=== PATIENT | female | born 2000 | race Caucasian/White ===

== ENCOUNTER 2019-10-23 09:36 | Emergency (ER) | payer BC, SELFPAY ==
[2019-10-23 09:56] VITALS: BP 142/87; PULSE 78; RESP 16; TEMP 36.7; O2SAT 100
--- NOTE | 2019-10-23 10:04 | ED.GENADULT ---
HPI - General Adult General Chief complaint: Unspecified Stated complaint: Head Pain Time Seen by Provider: 10/23/19 10:14 Source: patient Mode of arrival: ambulatory Limitations: no limitations History of Present Illness HPI narrative: 19-year-old female patient presents to the [facility] with complaints of a left-sided headache for the past 3 days. Patient states that she was on the playground about 3 days ago playing with her nephew and states that when she turned her head she excellently hit her head on 1 of the metal beams on the playground. Patient denies any loss of consciousness at that time. Patient states she has been treating the headache with Tylenol and ibuprofen and ice. Patient states that she knows that the ice does help the best. Patient states she has had a little bit of nausea and some sensitivity to light at times denies taking any medication today for the pain. Denies any passing out, changes in personality. Denies any vomiting. Denies any neck pain. Related Data Home Medications Medication Instructions Recorded Confirmed No Home Medications 10/23/19 10/23/19 Allergies Allergy/AdvReac Type Severity Reaction Status Date / Time No Known Allergies Allergy Mild Verified 02/23/19 00:33 Review of Systems Review of Systems: Narrative: CONSTITUTIONAL: Denies fever, chills, or sweats. EYES: Denies visual changes, redness, or discharge. ENT: Denies rhinorrhea, congestion, sore throat, or otalgia. CARDIOVASCULAR: Denies chest pain, palpitations, or edema. RESPIRATORY: Denies cough or dyspnea. GASTROINTESTINAL: Denies abdominal pain, nausea, vomiting, or diarrhea. GENITOURINARY: Denies dysuria or hematuria. SKIN: Denies rash or itching. MUSCULOSKELETAL: Denies back pain, joint pain, or myalgia. NEUROLOGIC: Positive left-sided headache, denies numbness, or weakness. PSYCHIATRIC: Denies anxiety or depression. [facility] Past Medical History Medical History Anxiety Depression Surgical History Surgical History Hx of appendectomy Family History Family History Mother Leukemia Other Diabetes mellitus Other Diabetes mellitus Social History Social History Smoking packs per day: 0 Smoking cigarettes per day: 0.0 Years smoked: 2 Smoking pack-years: 0.00 Smoking status: Light tobacco smoker Tobacco type: cigarettes Second hand tobacco smoke exposure: Yes Alcohol intake: never Gender identity (if verbalized by the patient): Female Comments At the time of my signature I agree with nursing past medical history, surgical, social, and family history. There is no relevant family history pertinent to the presenting complaint. Exam Narrative: Exam Narrative: GENERAL: Well-appearing, well-nourished, and in no acute distress. HEAD: Normocephalic, atraumatic. No trigger point for headache. No palpable scalp tenderness or obvious deformity noted. No surface trauma noted. EYES: PERRLA and EOMI. ENT: Nares clear, no rhinorrhea or epistaxis. Mucous membranes moist. Bilateral TMs are clear no erythema or foreign bodies to the canal. Posterior pharynx no erythema, tonsillar joint, exudates or lesions present. NECK: Supple, no lymphadenopathy. No surface trauma, no soft tissue or muscle tenderness or spasm noted. Trachea midline. No subq emphysema or crepitus. No santiago tenderness, step-offs or deformity to firm Palpation at posterior midline. FROM without limitation or pain, normal flexion, extension,Lateral bending, rotation, and axial load. CHEST: Clear to auscultation. No respiratory distress. HEART: Regular rate and rhythm. No murmur heard. Normal peripheral pulses. ABDOMEN: Soft, nontender, nondistended, normal active bowel sounds. EXTREMITIES: Normal range of motion. No edema. SKIN:
== END 2019-10-23 10:21 | disposition home or self-care (01) ==
PROVIDERS: Emergency Provider Nurse Practitioner Family
DX: G44.319 Acute post-traumatic headache, not intractable (principal); F17.210 Nicotine dependence, cigarettes, uncomplicated
CPT/HCPCS: 99212; G0463

== ENCOUNTER 2020-01-10 19:05 | Emergency (ER) | payer BC, SELFPAY ==
--- NOTE | 2020-01-10 19:11 | ED.GENADULT ---
HPI - General Adult General Chief complaint: Extremity Injury, Upper Stated complaint: left arm injury Time Seen by Provider: 01/10/20 19:10 Source: patient Mode of arrival: ambulatory Limitations: no limitations History of Present Illness HPI narrative: 19-year-old female patient presents to the [facility] with complaints of left upper arm pain that started after she got off work today approximately 2:00 this afternoon. Patient states that she works at [employer] and does do a lot of lifting at times. Patient states that she does did not have an injury today that she is aware of. Patient states that mostly has pain around the clavicle area and at times does hurt move the left shoulder and arm. Denies take anything for the pain. Related Data Allergies Allergy/AdvReac Type Severity Reaction Status Date / Time No Known Allergies Allergy Mild Verified 01/10/20 19:18 Review of Systems Review of Systems: Narrative: CONSTITUTIONAL: Denies fever, chills, or sweats. EYES: Denies visual changes, redness, or discharge. ENT: Denies rhinorrhea, congestion, sore throat, or otalgia. CARDIOVASCULAR: Denies chest pain, palpitations, or edema. RESPIRATORY: Denies cough or dyspnea. GASTROINTESTINAL: Denies abdominal pain, nausea, vomiting, or diarrhea. GENITOURINARY: Denies dysuria or hematuria. SKIN: Denies rash or itching. MUSCULOSKELETAL: Denies back pain, joint pain, or myalgia. Positive left clavicle and left shoulder pain since this afternoon. NEUROLOGIC: Denies headache, numbness, or weakness. PSYCHIATRIC: Denies anxiety or depression. [facility] Past Medical History Medical History (Updated 01/10/20 @ 19:25 by LAUREL Rudolph) Anxiety Depression Surgical History Surgical History Hx of appendectomy Family History Family History Mother Leukemia Other Diabetes mellitus Other Diabetes mellitus Social History Social History Smoking packs per day: 0 Smoking cigarettes per day: 0.0 Years smoked: 2 Smoking pack-years: 0.00 Smoking status: Light tobacco smoker Tobacco type: cigarettes Second hand tobacco smoke exposure: Yes Alcohol intake: never Gender identity (if verbalized by the patient): Female Comments At the time of my signature I agree with nursing past medical history, surgical, social, and family history. There is no relevant family history pertinent to the presenting complaint. Exam Narrative: Exam Narrative: GENERAL: Well-appearing, well-nourished, and in no acute distress. HEAD: Normocephalic, atraumatic. EYES: PERRLA and EOMI. ENT: Nares clear, no rhinorrhea or epistaxis. Mucous membranes moist. NECK: Supple. No lymphadenopathy CHEST: Clear to auscultation. No respiratory distress. HEART: Regular rate and rhythm. No murmur heard. Normal peripheral pulses. ABDOMEN: Soft, nontender, nondistended, normal active bowel sounds. EXTREMITIES: The L shoulder is without obvious asymmetry or deformity when compared to the R shoulder. No surface trauma, ecchymosis, crepitus. No bony deformity or prominence of the humeral head No erythema, warmth, swelling. no tenderness to palpation to clavicle, A to C joint, acromion, scapula or humeral head. No tenderness to palpation of the bicipital groove or soft tissues. tenderness to palpation of the muscles of the left clavicle area, no tenderness to the muscles around the sterncleidomastoid, pectorals, biceps/triceps, deltoid, trapezius, rhomboid, latissimus dorsi, rotator cuff. No pain or limitation with active or passive abduction/adduction, internal/external rotation, flexion/extension. Negative empty can and drop arm test (rotator cuff). No axillary tenderness or lymphadenopathy. Normal sensation over the deltoid and ability to flex arm at elbow indicates intact axillary nerve function. Distal
[2020-01-10 19:16] VITALS: BP 129/86; PULSE 110; RESP 20; TEMP 36.8; O2SAT 100
== END 2020-01-10 19:31 | disposition home or self-care (01) ==
PROVIDERS: Emergency Provider Nurse Practitioner Family
DX: S46.912A Strain of unspecified muscle, fascia and tendon at shoulder and upper arm level, left arm, initial encounter (principal); X58.XXXA Exposure to other specified factors, initial encounter; F17.210 Nicotine dependence, cigarettes, uncomplicated
CPT/HCPCS: 99213; G0463

== ENCOUNTER 2020-05-10 22:43 | Emergency (ER) | payer BC, SELFPAY ==
--- NOTE | ~2020-05-10 | XR_ITS ---
EXAMINATION: XR hand RT 2V EXAM DATE: 05/10/2020 23:16 INDICATION: Pain in thumb, felt a pop while carrying boxes today . TECHNIQUE: Frontal and lateral projections of the right hand. There is no prior study for compariso n. FINDINGS: The thumb is flexed at the interphalangeal joint. There are no acute fractures or dislocati ons identified. There is no subcutaneous gas. There are no radiopaque foreign bodies. IMPRESSION: Flexed thumb, could be positional. No dorsal plate avulsion fracture identified. Please c linically correlate to exclude extensor ligamentous injury. Reviewed, dictated and finalized at location A. ERS COUNSELLOR IMPRESSION: Flexed thumb, could be positional. No dorsal plate avulsion fractur e identified. Please clinically correlate to exclude extensor ligamentous injur y.
[2020-05-10 22:44] VITALS: BP 153/84; PULSE 110; RESP 20; TEMP 36.2; O2SAT 99
--- NOTE | 2020-05-10 23:00 | ED.UPPEXIN ---
HPI - Extremity Injury (Upper) General Chief Complaint: Extremity Injury, Upper Stated Complaint: pain to right thumb Time Seen by Provider: 05/10/20 22:49 Source: patient Mode of arrival: ambulatory Limitations: no limitations History of Present Illness HPI narrative: Patient is a 19-year-old female complaining of right thumb pain after she fell, broke the fall with her right hand and heard something pop in her right thumb. Patient denies any other pain or injury. Patient denies any head, neck, back, chest or any other extremity pain/injury. Related Data Home Medications Medication Instructions Recorded Confirmed No Home Medications 05/10/20 05/10/20 Allergies Allergy/AdvReac Type Severity Reaction Status Date / Time No Known Allergies Allergy Mild Verified 05/10/20 22:47 Review of Systems Review of Systems: All systems reviewed & are unremarkable except as noted in HPI and below PMFSH Past Medical History Medical History (Updated 05/10/20 @ 23:04 by Alberto Downs MD) Anxiety Depression Surgical History Surgical History Hx of appendectomy Family History Family History Mother Leukemia Other Diabetes mellitus Other Diabetes mellitus Social History Social History Smoking packs per day: 0 Smoking cigarettes per day: 0.0 Years smoked: 2 Smoking pack-years: 0.00 Smoking status: Light tobacco smoker Tobacco type: cigarettes Second hand tobacco smoke exposure: Yes Alcohol intake: never Gender identity (if verbalized by the patient): Female Exam Const: General: no acute distress and alert Nutritional Appearance: obese Orientation/consciousness: patient oriented x3 HENMT: Head: normal to inspection Eyes: Conjunctivae: conjunctivae normal Neck: Neck: normal visual inspection Resp: Effort & Inspection: normal respiratory effort Skin: General skin exam: normal color Rashes: no rashes Neuro: General: moves all extremities Extrem: Other: Negative for any significant deformity or swelling. Pain on palpation of the right thumb, pain on range of motion of the right thumb, neurovascular is intact Course Vital Signs Vital signs: Vital Signs Temperature 36.2 C L 05/10/20 22:44 Pulse Rate 110 H 05/10/20 22:44 Respiratory Rate 20 05/10/20 22:44 Blood Pressure 153/84 H 05/10/20 22:44 Pulse Oximetry 99 05/10/20 22:44 Temperature 36.2 C L 05/10/20 22:44 Pulse Rate 110 H 05/10/20 22:44 Respiratory Rate 20 05/10/20 22:44 Blood Pressure 153/84 H 05/10/20 22:44 Pulse Oximetry 99 05/10/20 22:44 Discharge Plan Discharge Clinical Impression: Finger sprain Qualifiers: Encounter type: initial encounter Finger: thumb Sprain of finger site: unspecified site Laterality: right Qualified Code(s): S63.601A - Unspecified sprain of right thumb, initial encounter Patient Disposition: Home, Self-Care Condition: Improved Instructions: Finger Sprain (ED) Additional Instructions: Follow-up with your primary care physician in 1 to 2 days. Prescriptions: No Action No Home Medications RF: 0 Follow-up/Referrals: PHYSICIAN,LPN PER DIEM [Primary Care Provider] -
[2020-05-10] MEDS: IBUPROFEN 600 MG TABLET PO (23:35)
[2020-05-10 23:40] VITALS: BP 134/71; PULSE 99; RESP 18; O2SAT 99
== END 2020-05-10 23:40 | disposition home or self-care (01) ==
PROVIDERS: Emergency Provider Emergency Medicine
DX: S63.601A Unspecified sprain of right thumb, initial encounter (principal); F17.210 Nicotine dependence, cigarettes, uncomplicated; W19.XXXA Unspecified fall, initial encounter
CPT/HCPCS: 73120; 99283; A9270

== ENCOUNTER 2020-06-21 12:16 | Emergency (ER) | payer OTHER, BC, SELFPAY ==
--- NOTE | ~2020-06-21 | XR_ITS ---
EXAMINATION: XR shoulder RT min 2V DATE: 06/21/2020 12:58 INDICATION: Right shoulder pain post injury TECHNIQUE: AP internally and externally rotated, AP oblique externally rotated and transscapular Y vi ews of the right shoulder were obtained. COMPARISON: None FINDINGS: Normal alignment. No fracture. Glenohumeral joint is normal. Acromioclavicular joint is normal. Soft tissues are unremarkable. Visualized portion of the right lung are clear. IMPRESSION: Negative right shoulder radiographs. Reviewed, dictated and finalized at location A.
[2020-06-21 12:18] VITALS: BP 121/85; PULSE 84; RESP 18; TEMP 36.4; O2SAT 99
--- NOTE | 2020-06-21 13:18 | ED.GENADULT ---
HPI - General Adult General Chief complaint: Extremity Injury, Upper Stated complaint: RIGHT SHOULDER PAIN Time Seen by Provider: 06/21/20 12:20 Source: patient Mode of arrival: ambulatory Limitations: no limitations History of Present Illness HPI narrative: Patient is a 20-year-old female who presents to emergency department for evaluation of right shoulder pain after lifting boxes at work yesterday notes aching pain patient did take some ibuprofen with minimal improvement patient on arrival is in no distress pain is localized to the rotator cuff musculature patient denies similar occurrence in the past and has not been seen for this complaint Related Data Allergies Allergy/AdvReac Type Severity Reaction Status Date / Time No Known Allergies Allergy Mild Verified 06/21/20 12:20 Review of Systems Review of Systems: All systems reviewed & are unremarkable except as noted in HPI and below PMFSH Past Medical History Medical History (Updated 06/21/20 @ 13:21 by Michael Hillman PA-C) Anxiety Depression Surgical History Surgical History Hx of appendectomy Family History Family History Mother Leukemia Other Diabetes mellitus Other Diabetes mellitus Social History Social History Smoking packs per day: 0 Smoking cigarettes per day: 0.0 Years smoked: 2 Smoking pack-years: 0.00 Smoking status: Light tobacco smoker Tobacco type: cigarettes Second hand tobacco smoke exposure: Yes Alcohol intake: never Gender identity (if verbalized by the patient): Female Exam Narrative: Exam Narrative: GENERAL: Well-appearing, obese, and in no acute distress. HEAD: Normocephalic, atraumatic. EYES: PERRLA and EOMI. ENT: Nares clear, no rhinorrhea or epistaxis. Mucous membranes moist. CHEST: Clear to auscultation. No respiratory distress. No wheezes rales or rhonchi HEART: Regular rate and rhythm. No murmur heard. EXTREMITIES: Normal range of motion. No edema. Tenderness of the right rotator cuff musculature no deformities noted SKIN: Warm, dry, no rash. NEURO: No focal deficits. Alert and oriented x3. Neurovascularly intact PSYCH: Normal mood and affect. Course Course Emergency Course: Patient with likely shoulder strain will be managed accordingly given reasons for follow-up will be discharged home with planned outpatient follow-up Vital Signs Vital signs: Vital Signs Temperature 97.5 F L 06/21/20 12:18 Pulse Rate 84 06/21/20 12:18 Respiratory Rate 18 06/21/20 12:18 Blood Pressure 121/85 06/21/20 12:18 Pulse Oximetry 99 06/21/20 12:18 Temperature 97.5 F L 06/21/20 12:18 Pulse Rate 84 06/21/20 12:18 Respiratory Rate 18 06/21/20 12:18 Blood Pressure 121/85 06/21/20 12:18 Pulse Oximetry 99 06/21/20 12:18 Medical Decision Making MDM Narrative Medical decision making narrative: Patients injury or pain is consistent with musculoskeletal etiology. No signs of neurological or vascular compromise on exam. Compartments and tisues are soft without signs of compartment syndrome. Pain is felt appropriate for further evaluation on an outpatient basis. Vital Signs Vital Signs: Vital Signs Temperature 97.5 F L 06/21/20 12:18 Pulse Rate 84 06/21/20 12:18 Respiratory Rate 18 06/21/20 12:18 Blood Pressure 121/85 06/21/20 12:18 Pulse Oximetry 99 06/21/20 12:18 Temperature 97.5 F L 06/21/20 12:18 Pulse Rate 84 06/21/20 12:18 Respiratory Rate 18 06/21/20 12:18 Blood Pressure 121/85 06/21/20 12:18 Pulse Oximetry 99 06/21/20 12:18 Imaging Data Radiologist's impression: ITS Impressions Shoulder X-Ray 06/21/20 13:16 IMPRESSION: Negative right shoulder radiographs. Discharge Plan Discharge Clinical Impression: Acute pain of right shoulder Patient
== END 2020-06-21 13:31 | disposition home or self-care (01) ==
PROVIDERS: Emergency Provider Emergency Medicine
DX: M25.511 Pain in right shoulder (principal); F17.210 Nicotine dependence, cigarettes, uncomplicated
CPT/HCPCS: 73030; 99283

== ENCOUNTER 2020-06-28 15:18 | Emergency (ER) | payer OTHER, BC, SELFPAY ==
[2020-06-28 15:26] VITALS: BP 135/82; PULSE 105; RESP 14; TEMP 36.5; O2SAT 100
--- NOTE | 2020-06-28 15:37 | ED.GENADULT ---
HPI - General Adult General Chief complaint: Extremity Injury, Upper Stated complaint: right shoulder pain Time Seen by Provider: 06/28/20 15:21 Source: patient Mode of arrival: ambulatory Limitations: no limitations History of Present Illness HPI narrative: Patient presents for evaluation of right shoulder pain for the last week. She was evaluated here 6 days ago after she sustained a work-related injury the day prior. She states she works for [employer] and injured her shoulder lifting and pushing boxes. She did an x-ray at that time that was negative for fracture. She has been taking ibuprofen and Flexeril without much improvement in her symptoms. She has not followed up with occupational health as she did not know who she was to see for follow-up. It is constant, currently rated 4 out of 10 in severity, worse with movement. Pain radiates into the right lateral neck and down into the right humerus. She is right-hand dominant. Denies paresthesias. No additional complaints or concerns. No new traumatic injury to the affected area. Related Data Allergies Allergy/AdvReac Type Severity Reaction Status Date / Time No Known Allergies Allergy Mild Verified 06/21/20 12:20 Review of Systems Review of Systems: Narrative: CONSTITUTIONAL: Denies fever, chills, or sweats. EYES: Denies visual changes, redness, or discharge. ENT: Denies rhinorrhea, congestion, sore throat, or otalgia. CARDIOVASCULAR: Denies chest pain, palpitations, or edema. RESPIRATORY: Denies cough or dyspnea. GASTROINTESTINAL: Denies abdominal pain, nausea, vomiting, or diarrhea. GENITOURINARY: Denies dysuria or hematuria. SKIN: Denies rash or itching. MUSCULOSKELETAL: Reports pain in the right shoulder with radiation into the neck and right humerus NEUROLOGIC: Denies headache, numbness, dizziness, or weakness. PSYCHIATRIC: Denies anxiety or depression. [facility] Past Medical History Medical History (Updated 06/28/20 @ 15:43 by Michael Neff, LAUREL, WILLIS) Anxiety Depression Surgical History Surgical History Hx of appendectomy Family History Family History Mother Leukemia Other Diabetes mellitus Other Diabetes mellitus Social History Social History (Reviewed 06/28/20 @ 15:39 by Michael Neff, [facility], ) Smoking packs per day: 0 Smoking cigarettes per day: 0.0 Years smoked: 2 Smoking pack-years: 0.00 Smoking status: Light tobacco smoker Tobacco type: cigarettes Second hand tobacco smoke exposure: Yes Alcohol intake: never Gender identity (if verbalized by the patient): Female Exam Narrative: Exam Narrative: GENERAL: Well-appearing, well-nourished, and in no acute distress. HEAD: Normocephalic, atraumatic. EYES: PERRLA and EOMI. ENT: Nares clear, no rhinorrhea or epistaxis. Mucous membranes moist. Oropharynx without tonsillar hypertrophy exudate or other lesions. Bilateral TMs pearly miller nonbulging NECK: Supple. No adenopathy or masses. No carotid bruits or JVD CHEST: Clear to auscultation. No respiratory distress. No wheezes rales or rhonchi HEART: Regular rate and rhythm. No murmur heard. Normal peripheral pulses. ABDOMEN: Soft, nontender, nondistended, normal active bowel sounds. EXTREMITIES: Normal range of motion. No edema. SKIN: Warm, dry, no rash. NEURO: No focal deficits. Alert and oriented x3. PSYCH: Normal mood and affect. Course Course Emergency Course: This is a 20-year-old female who presented with right shoulder pain after injuring herself at work 1 week ago. She already had an x-ray 6 days ago that was negative for fracture. She did not follow-up with occupational health. She has no new traumatic injury warranting repeat x-ray. Ibuprofen and Flexeril have been minimally effective. Likely needs MRI. She was given hydrocodone here in the emergency department was advised to follow-up for fu
[2020-06-28] MEDS: HYDROcodone/acetaminophen (*CRX) 5-325 MG TABLET 1 TAB PO (15:46)
== END 2020-06-28 16:18 | disposition home or self-care (01) ==
LOC: ANHED 16:04
PROVIDERS: Emergency Provider Nurse Practitioner
DX: S46.911A Strain of unspecified muscle, fascia and tendon at shoulder and upper arm level, right arm, initial encounter (principal); F17.210 Nicotine dependence, cigarettes, uncomplicated; X50.0XXA Overexertion from strenuous movement or load, initial encounter
CPT/HCPCS: 99283; A9270

== ENCOUNTER 2021-09-17 14:36 | Emergency (ER) | payer OTHER, SELFPAY ==
--- NOTE | ~2021-09-17 | CT_ITS ---
EXAMINATION: CT abdomen pelvis w con DATE: 09/17/2021 17:51 INDICATION: Right flank pain and hematuria TECHNIQUE: Computed tomography (CT) of the abdomen and pelvis was performed with 100 cc Omnipaque 300 intravenous contrast. The dose-length product was 1333.12 mGy-cm. Automated exposure control and iterative reconstruction technique were employed. COMPARISON: CT dated 12/23/2018. FINDINGS: Lung bases are unremarkable. Heart size normal. No significant pleural or pericardial effus ion. No significant vascular abnormality. There is no significant lymphadenopathy. No Fatty infiltration of the liver. The spleen, pancreas, adrenal glands and kidneys are unremarkable. S tatus post appendectomy. Small fat-containing umbilical hernia. No abnormal pelvic masses or fluid co llections. No free air or free fluid. No acute osseous abnormality. IMPRESSION: 1. No acute abdominal abnormality. Reviewed, dictated and finalized at location A.
--- NOTE | ~2021-09-17 | US_ITS ---
US abdomen limited INDICATION: Abdomen pain PROCEDURE: Realtime right upper abdominal ultrasound. COMPARISON: No prior studies for comparison. FINDINGS: The pancreas is normal without focal mass or pancreatic ductal dilation. Liver echotexture is increased, consistent with fatty infiltration. There is normal directional flow in the portal ve in. The gallbladder is normal without stones, gallbladder wall thickening or pericholecystic fluid. Comm on bile duct measures 5 mm. No sonographic Bolden's sign. IMPRESSION: 1: Hepatic steatosis. Reviewed, dictated and finalized at location A. IMPRESSION: 1: Hepatic steatosis.
[2021-09-17 14:37] VITALS: BP 133/77; PULSE 82; RESP 16; TEMP 36.2; O2SAT 100
[2021-09-17 15:07] LABS: Appearance Urine Cloudy (Clear); Bilirubin Urine Negative (Negative); Blood Urine 3+ (Negative); Color Urine Yellow (Yellow); Glucose Urine UA 2+ mg/dL (Negative); Ketones Urine Negative (Negative); Leukocyte Esterase Ur Negative LEU/UL (Negative); Nitrate Urine Negative (Negative); Protein Urine 1+ mg/dL (Negative); Specific Grav Ur >= 1.030 (1.001-1.035); Urobilinogen Urine 0.2 mg/dL (<2.0)
[2021-09-17 15:07] LABS: Basophils Percent Auto 0.3 % (0.2-1.2); Eosinophils Absolute Auto 0.2 K/mm3 (0-0.3); Eosinophils Percent Auto 1.7 % (0-4.4); Hematocrit 43.3 % (37.0-47.0); Hemoglobin 13.6 g/dL (12.0-15.0); Immature Granulocyte Absolute 0.02 K/mm3 (0.00-0.031); Immature Granulocyte Percent A 0.2 % (0-0.5); Lymphocytes Absolute Auto 3.31 K/mm3 (0.9-3.2); Lymphocytes Percent Auto 38.2 % (18.3-44.2); Mean Corpuscular HGB Conc 31.4 g/dl (32-36); Mean Corpuscular Hemoglobin 25.6 pg (26-34); Mean Corpuscular Volume 81.4 fl (80-100); Mean Platelet Volume 11.7 fl (7.4-10.4); Monocytes Absolute Auto 0.4 K/mm3 (0.1-0.6); Monocytes Percent Auto 4.7 % (2.6-8.5); Neutrophils Absolute Auto 4.7 K/mm3 (1.3-6.7); Neutrophils Percent Auto 54.9 % (45.5-73.1); Platelet Count Result 272 k/mm3 (150-375); Red Blood Count 5.32 M/mm3 (4.2-5.4); Red Cell Distribution Width 13.4 % (11.5-14.5); White Blood Count 8.7 K/mm3 (4.5-10.0)
[2021-09-17 15:18] LABS: Alanine Aminotransferase 38 U/L (6-35); Albumin Level 4.3 g/dL (3.5-5.1); Alkaline Phosphatase 129 U/L (38-126); Anion Gap 8 mmol/L (8-16); Aspartate Amino Transferase 25 U/L (14-36); Bilirubin,Total 0.3 mg/dL (0.2-1.3); Blood Urea Nitrogen 18 mg/dL (7-17); Calcium 8.6 mg/dL (8.4-10.2); Carbon Dioxide 23 mmol/L (22-30); Chloride 108 mmol/L (98-107); Estimated CRCL calculation 152 ml/min; Estimated Glomerular Filt Rate > 60; Glucose 172 mg/dL (65-110); Potassium 4.1 mmol/L (3.4-5.0); Sodium 139 mmol/L (137-145)
[2021-09-17 15:33] LABS: Bacteria Urine Trace /hpf; Mucus Urine Rare /lpf; RBC Urine >75 /hpf (0-2); Squamous Epithelial Cell Urine Many /hpf (Few); WBC Urine 0-3 /hpf
[2021-09-17 15:44] LABS: Add Urine Microscopic? YES
--- NOTE | 2021-09-17 15:51 | ED.ABDPAIN ---
HPI - Abdominal Pain General Chief Complaint: Abdominal Pain Stated Complaint: Right Flank Pain Time Seen by Provider: 09/17/21 15:51 History of Present Illness HPI narrative: Patient is a 21-year-old female presenting to the emergency department for evaluation of right upper quadrant abdominal pain. Patient reports aching pain in her right upper quadrant with radiation to the middle of the upper abdomen. No associated fever, chills, nausea or vomiting. No associated flank pain, back pain or shoulder pain. She denies any chest pain, cough or dyspnea. Patient denies any lower abdominal pain. She does have history of appendectomy. She denies dysuria or hematuria. She denies lower pelvic pain. Patient has not taken any medication for the pain. She states that eating sometimes does mildly exacerbate the pain. She denies history of this in the past Related Data Home Medications Medication Instructions Recorded Confirmed citalopram 20 mg tablet tablet 09/17/21 Allergies Allergy/AdvReac Type Severity Reaction Status Date / Time No Known Allergies Allergy Mild Verified 06/21/20 12:20 Review of Systems Review of Systems: CONSTITUTIONAL: Denies fever, chills, or sweats. CARDIOVASCULAR: Denies chest pain, palpitations, or edema. RESPIRATORY: Denies cough or dyspnea. GASTROINTESTINAL: Reports abdominal pain, denies nausea, vomiting or diarrhea GENITOURINARY: Denies dysuria or hematuria. SKIN: Denies rash or itching. MUSCULOSKELETAL: Denies back pain, joint pain, or myalgia. NEUROLOGIC: Denies headache, numbness, or weakness. PSYCHIATRIC: Reports history of anxiety and depression [facility] Past Medical History Medical History (Updated 09/17/21 @ 18:10 by Katie Lake MD) Anxiety Depression Surgical History Surgical History Hx of appendectomy Family History Family History Mother Leukemia Other Diabetes mellitus Other Diabetes mellitus Social History Social History Smoking packs per day: 0 Smoking cigarettes per day: 0.0 Years smoked: 2 Smoking pack-years: 0.00 Smoking status: Light tobacco smoker Tobacco type: cigarettes Second hand tobacco smoke exposure: Yes Alcohol intake: never Gender identity (if verbalized by the patient): Female Exam Narrative: GENERAL: Awake, alert, conversant HEAD: Normocephalic, atraumatic. EYES: PERRLA and EOMI. ENT: Nares clear, no rhinorrhea or epistaxis. Mucous membranes moist. NECK: Supple. CHEST: No respiratory distress, breathing even and non labored HEART: Regular rate, sinus rhythm ABDOMEN:Non distended, right upper quadrant tenderness, positive epigastric tenderness, positive Bolden sign, no rebound, rigidity or guarding, no flank tenderness bilaterally EXTREMITIES: Normal range of motion. No edema. SKIN: Warm, dry, no rash. NEURO:No focal deficits. Alert and oriented x3 Course Vital Signs Vital signs: Vital Signs Temperature 36.2 C L 09/17/21 14:37 Pulse Rate 82 09/17/21 14:37 Respiratory Rate 16 09/17/21 14:37 Blood Pressure 133/77 09/17/21 14:37 Pulse Oximetry 100 09/17/21 14:37 Oxygen Delivery Room Air 09/17/21 14:37 Temperature 36.2 C L 09/17/21 14:37 Pulse Rate 82 09/17/21 14:37 Respiratory Rate 16 09/17/21 14:37 Blood Pressure 121/69 09/17/21 17:22 Pulse Oximetry 100 09/17/21 17:22 Oxygen Delivery Room Air 09/17/21 14:37 MDM - Abdominal Pain MDM Narrative Medical decision making narrative: Patient initially presenting for epigastric and right upper quadrant abdominal pain without chest pain or back pain. Differential includes cholecystitis, symptomatic cholelithiasis, pancreatitis, gastritis. Patient declines wanting any pain medication. Vital signs are stable. No peritoneal signs on exam of the abdomen. She is te
[2021-09-17 15:59] VITALS: BP 134/81; O2SAT 100
[2021-09-17 16:01] VITALS: BP 123/69; O2SAT 100
[2021-09-17 16:12] LABS: Pregnancy On Board Control Positive; Urine Pregnancy Test Negative
[2021-09-17 16:38] VITALS: BP 133/82; O2SAT 100
[2021-09-17 16:49] LABS: Lipase 65 U/L (23-300)
[2021-09-17] MEDS: SODIUM CHLORIDE 0.9% IV 1,000 ML 999 ML IV CONT (17:19)
[2021-09-17 17:22] VITALS: BP 121/69; O2SAT 100
[2021-09-17 18:25] VITALS: BP 121/72; PULSE 86; RESP 18; O2SAT 100
== END 2021-09-17 18:27 | disposition home or self-care (01) ==
PROVIDERS: General Practice; Emergency Provider Emergency Medicine
DX: K29.70 Gastritis, unspecified, without bleeding (principal); K76.0 Fatty (change of) liver, not elsewhere classified; F41.9 Anxiety disorder, unspecified; F32.A Depression, unspecified; F17.210 Nicotine dependence, cigarettes, uncomplicated
CPT/HCPCS: 36415; 74177; 76705; 80053; 81001; 81025; 83690; 85025; 96360; 99284; J7030; Q9967

== ENCOUNTER 2021-10-02 00:48 | Emergency (ER) | payer OTHER, SELFPAY ==
--- NOTE | ~2021-10-02 | CT_ITS ---
EXAMINATION: CT abdomen pelvis w con DATE: 10/02/2021 03:24 INDICATION: Right upper quadrant abdominal pain. Right flank pain. TECHNIQUE: Computed tomography (CT) of the abdomen and pelvis was performed with 100 mL Omnipaque-300 intravenous contrast. Automated exposure control and iterative reconstruction technique were employe d. The dose-length product was 1539.37 mGy-cm. COMPARISON: 09/17/2021 FINDINGS: Lung bases are clear. Heart size is normal. No pericardial or pleural effusion. Diffuse hepatic steat osis. Gallbladder, spleen, pancreas, bilateral adrenal glands and kidneys are normal. Appendix is not visualized. Postoperative changes at the tip the cecum consistent with prior appendectomy. Bowels ar e otherwise unremarkable. Bladder, anteverted uterus and bilateral adnexa are unremarkable. No free i ntraperitoneal gas or fluid. No pathologically enlarged abdominal or pelvic lymphadenopathy. Mild lum bar dextrocurvature. IMPRESSION: 1. No acute intra-abdominal/pelvic process. Reviewed, dictated and finalized at location A.
[2021-10-02 00:53] VITALS: BP 133/98; PULSE 96; RESP 20; TEMP 36.4; O2SAT 100
[2021-10-02] MEDS: MAG HYDROX/AL HYDROX/SIMETH 30 ML UDC PO (02:08)
--- NOTE | 2021-10-02 02:13 | ED.ABDPAIN ---
HPI - Abdominal Pain General Chief Complaint: Abdominal Pain <KARIME Hein Last Filed: 10/02/21 03:37> Stated Complaint: lower back pain, Hx of liver issues <KARIME Hein Last Filed: 10/02/21 03:37> Time Seen by Provider: 10/02/21 01:51 <KARIME Hein Last Filed: 10/02/21 03:37> History of Present Illness HPI narrative: Patient is a 21 year old female here for evaluation of right upper abdominal pain x 1 day. States the pain is constant in nature, is dull and achy, and remains in her right upper quadrant. She is additionally been experiencing some low back pain over the past day, that is worse with positions, bilateral but worse on the right side. Presents to the ED today largely because she was told she has a fatty liver in the past and was told to come back to the ED should she develop back pain. Denies fevers, chills, nausea, vomiting, diarrhea, constipation. <KARIME Hein Last Filed: 10/02/21 03:37> Related Data Home Medications: Home Medications Medication Instructions Recorded Confirmed citalopram 20 mg tablet tablet 09/17/21 <KARIME Hein Last Filed: 10/02/21 03:37> Allergies/Adverse Reactions: Allergies Allergy/AdvReac Type Severity Reaction Status Date / Time No Known Allergies Allergy Mild Verified 10/02/21 01:48 <KARIME Hein Last Filed: 10/02/21 03:37> Review of Systems Review of Systems: Gen.: Denies fevers or chills Eyes: Denies eye pain or visual change ENT: Denies congestion Respiratory: Denies shortness of breath or cough CV: Denies chest pain or palpitations GI: Reports upper abdominal pain. denies burning, urgency, frequency or hematuria Musculoskeletal: Reports back pain. Denies muscle pain Neuro: Denies numbness, tingling, weakness or focal weakness Skin: Denies rash Except as documented, all other systems reviewed and negative <KARIME Hein Last Filed: 10/02/21 03:37> [facility] Past Medical History Medical History: Medical History (Updated 10/02/21 @ 05:59 by Saumya Yang MD) Anxiety Depression <Cathy Hoffman PA-C - Last Filed: 10/02/21 03:37> Surgical History Surgical History: Surgical History Hx of appendectomy <Cathy Hoffman PA-C - Last Filed: 10/02/21 03:37> Family History Family History: Family History Mother Leukemia Other Diabetes mellitus Other Diabetes mellitus <Cathy Hoffman PA-C - Last Filed: 10/02/21 03:37> Social History Social History: Social History Smoking packs per day: 0 Smoking cigarettes per day: 0.0 Years smoked: 2 Smoking pack-years: 0.00 Smoking status: Light tobacco smoker Tobacco type: cigarettes Second hand tobacco smoke exposure: Yes Alcohol intake: never Gender identity (if verbalized by the patient): Female <KARIME Hein Last Filed: 10/02/21 03:37> Exam Narrative: APPEARANCE: Well appearing, no pain in distress, well-nourished. Head: Normocephalic and atraumatic. EYES: PERRLA/EOMI, conjunctivae clear NOSE: No nasal drainage EARS: External ear normal in appearance THROAT: Oropharynx is clear. Mucous membranes are moist. NECK: Supple. No adenopathy, no masses. RESPIRATORY: Airway patent, respirations nonlabored. Clear to auscultation bilaterally, no rales, rhonchi, wheezing. CARDIOVASCULAR: Regular rate and rhythm without murmurs, rubs, or gallops. ABDOMINAL: Tender to palpation in right upper quadrant. normoactive bowel sounds. Soft, nondistended. No rebound tenderness or guarding. MUSCULOSKELETAL: tender to palpation over lumbar paraspinal muscles. Extremities are warm and well-perfused. Moves all extremities well. No edema. NEURO: No
[2021-10-02 02:42] LABS: Basophils Absolute Auto 0.1 K/mm3 (0.0-0.1); Basophils Percent Auto 0.4 % (0.2-1.2); Eosinophils Absolute Auto 0.2 K/mm3 (0-0.3); Eosinophils Percent Auto 1.5 % (0-4.4); Hematocrit 39.9 % (37.0-47.0); Hemoglobin 12.6 g/dL (12.0-15.0); Immature Granulocyte Absolute 0.05 K/mm3 (0.00-0.031); Immature Granulocyte Percent A 0.4 % (0-0.5); Lymphocytes Absolute Auto 4.02 K/mm3 (0.9-3.2); Lymphocytes Percent Auto 35.3 % (18.3-44.2); Mean Corpuscular HGB Conc 31.6 g/dl (32-36); Mean Corpuscular Hemoglobin 25.4 pg (26-34); Mean Corpuscular Volume 80.4 fl (80-100); Mean Platelet Volume 11.6 fl (7.4-10.4); Monocytes Absolute Auto 0.6 K/mm3 (0.1-0.6); Monocytes Percent Auto 5.3 % (2.6-8.5); Neutrophils Absolute Auto 6.5 K/mm3 (1.3-6.7); Neutrophils Percent Auto 57.1 % (45.5-73.1); Platelet Count Result 270 k/mm3 (150-375); Red Blood Count 4.96 M/mm3 (4.2-5.4); Red Cell Distribution Width 13.4 % (11.5-14.5); White Blood Count 11.4 K/mm3 (4.5-10.0)
[2021-10-02 02:52] LABS: Alanine Aminotransferase 45 U/L (6-35); Albumin Level 4.1 g/dL (3.5-5.1); Alkaline Phosphatase 121 U/L (38-126); Anion Gap 9 mmol/L (8-16); Aspartate Amino Transferase 30 U/L (14-36); Bilirubin,Total 0.2 mg/dL (0.2-1.3); Blood Urea Nitrogen 23 mg/dL (7-17); Calcium 8.9 mg/dL (8.4-10.2); Carbon Dioxide 25 mmol/L (22-30); Chloride 105 mmol/L (98-107); Estimated CRCL calculation 135 ml/min; Estimated Glomerular Filt Rate > 60; Glucose 190 mg/dL (65-110); Lipase 72 U/L (23-300); Sodium 139 mmol/L (137-145)
[2021-10-02 03:35] LABS: Bacteria Urine Trace /hpf; Mucus Urine Rare /lpf; Squamous Epithelial Cell Urine Many /hpf (Few); WBC Urine 16-20 /hpf
[2021-10-02 03:44] LABS: Appearance Urine Slightly Cloudy (Clear); Bilirubin Urine Negative (Negative); Blood Urine Negative (Negative); Color Urine Yellow (Yellow); Glucose Urine UA Trace mg/dL (Negative); Ketones Urine Negative (Negative); Leukocyte Esterase Ur Trace LEU/UL (Negative); Nitrate Urine Negative (Negative); Protein Urine Negative (Negative); Specific Grav Ur >= 1.030 (1.001-1.035); Urobilinogen Urine 0.2 mg/dL (<2.0); pH Urine 6.5 (5.0-9.0)
[2021-10-02 03:45] LABS: Add Urine Microscopic? YES
[2021-10-02] MEDS: cefTRIAXone 2 GM in SODIUM CHLORIDE 0.9% IV 100 ML 200 ML IVPB (05:12)
[2021-10-02 06:12] VITALS: BP 125/72; PULSE 83; RESP 16; O2SAT 99
== END 2021-10-02 06:10 | disposition home or self-care (01) ==
PROVIDERS: Physician Assistant; Emergency Provider Emergency Medicine
DX: N39.0 Urinary tract infection, site not specified (principal); F41.9 Anxiety disorder, unspecified; F32.A Depression, unspecified; F17.210 Nicotine dependence, cigarettes, uncomplicated
CPT/HCPCS: 36415; 74177; 80053; 81001; 81025; 83690; 85025; 87086; 87088; 96365; 99284; A9270; J0696; Q9967

== ENCOUNTER 2022-04-22 23:23 | Emergency (ER) | payer OTHER, SELFPAY ==
--- NOTE | ~2022-04-22 | XR_ITS ---
EXAMINATION: XR shoulder LT min 2V DATE: 04/23/2022 05:14 INDICATION: Left shoulder pain. TECHNIQUE: 4 views of left shoulder were obtained. COMPARISON: None. FINDINGS: Bone alignment is normal. No fracture. Joint spaces are well maintained. IMPRESSION: 1. Normal left shoulder. Reviewed, dictated and finalized at location A. [facility] IMPRESSION: 1. Normal left shoulder.
[2022-04-22 23:29] VITALS: BP 144/80; PULSE 94; RESP 18; TEMP 35.8; O2SAT 99
[2022-04-23 03:24] VITALS: BP 135/92; PULSE 96; RESP 16; O2SAT 98
[2022-04-23] MEDS: IBUPROFEN 400 MG TABLET 800 MG PO (05:15)
[2022-04-23] MEDS: ACETAMINOPHEN 500 MG TABLET 1000 MG PO (05:15)
[2022-04-23] MEDS: methocarbamoL 750 MG TABLET PO (05:16)
--- NOTE | 2022-04-23 06:01 | ED.GENADULT ---
HPI - General Adult General Chief complaint: Extremity Injury, Upper Stated complaint: left arm pain after blood draw 10 days ago Time Seen by Provider: 04/23/22 04:18 History of Present Illness HPI narrative: 21-year-old presenting with left shoulder pain. The patient had a blood draw 10 days ago and has a small bruise on her bicep. She believes that has now spread to her shoulder. She has an achy pain in her shoulder that is worse with movement. 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 Patient has taken naproxen with some relief. She has not taken a dose and over 12 hours. She denies fever, chills, swelling of the joint, numbness tingling weakness to the extremity.Patient has had similar pain in her right shoulder that improved with naproxen. Related Data Home Medications Medication Instructions Recorded Confirmed citalopram 20 mg tablet tablet 09/17/21 Allergies Allergy/AdvReac Type Severity Reaction Status Date / Time No Known Allergies Allergy Mild Verified 04/22/22 23:32 [facility] Past Medical History Medical History (Updated 04/23/22 @ 06:10 by Bear Cheng MD) Anxiety Depression Surgical History Surgical History Hx of appendectomy Family History Family History Mother Leukemia Other Diabetes mellitus Other Diabetes mellitus Social History Social History Smoking packs per day: 0 Smoking cigarettes per day: 0.0 Years smoked: 2 Smoking pack-years: 0.00 Smoking status: Light tobacco smoker Tobacco type: cigarettes Second hand tobacco smoke exposure: Yes Alcohol intake: never Occupation/Education: other Gender identity (if verbalized by the patient): Female Exam Narrative: APPEARANCE: No apparent distress. Head: atraumatic. EYES: EOMI, NOSE: Atraumatic NECK: Trachea midline RESPIRATORY: No increased rate of breathing CARDIOVASCULAR: RRR, ABDOMINAL: Non-distended MUSCULOSKELETAl: No obvious deformities, no warmth to the joint, pain on active and passive range of motion she tries to touch her opposing shoulder or place her arm behind her back and extend, motor function intact. Sensation light touch intact in the hand. Cap refill less than 2 seconds. NEURO: Alert. Moving 4/4 extremities SKIN:: Small area of bruising over the left biceps PSYCHIATRIC: Normal affect Course Vital Signs Vital signs: Vital Signs Temperature 96.5 F L 04/22/22 23:29 Pulse Rate 94 04/22/22 23:29 Respiratory Rate 18 04/22/22 23:29 Blood Pressure 144/80 H 04/22/22 23:29 Pulse Oximetry 99 04/22/22 23:29 Temperature 96.5 F L 04/22/22 23:29 Pulse Rate 96 04/23/22 03:24 Respiratory Rate 16 04/23/22 03:24 Blood Pressure 135/92 H 04/23/22 03:24 Pulse Oximetry 98 04/23/22 03:24 Medical Decision Making MDM Narrative Medical decision making narrative: -Presentation: 21-year-old female presenting with left shoulder pain. Patient believes this is related to a blood draw she had 10 days ago but those are not related. -DDX includes but is not limited to: MSK pain, impingement syndrome, calcific tendinitis -Co-morbidities complicating care: anxiety -Social determinants of health: patient works as a oliver, she does significant overhead lifting. injury is impairing her ability to work. -External Chart Review: None -Hx from independent Sources: none -Discussion of Management/Consultants: none -Independent interpretation of studies: shoulder x-ray showed no acute findings. Dx tests considered but not ordered: None -Procedures: none -Interventions:800 mg Motrin, 1000 mg Tylenol, 15 mg Robaxin -Shared decision making / Disposition: patient's findings are consistent with shoulder impingement syndrome. She will be trialed on a short cour
[2022-04-23 07:36] VITALS: PULSE 85; RESP 16; O2SAT 99
== END 2022-04-23 07:37 | disposition home or self-care (01) ==
PROVIDERS: Emergency Provider Emergency Medicine
DX: M25.512 Pain in left shoulder (principal); F41.9 Anxiety disorder, unspecified; F32.A Depression, unspecified
CPT/HCPCS: 73030; 99283; A9270

== ENCOUNTER 2022-05-14 10:57 | Emergency (ER) | payer OTHER, SELFPAY ==
[2022-05-14 11:17] VITALS: BP 127/65; PULSE 104; RESP 16; TEMP 36.6; O2SAT 99
--- NOTE | 2022-05-14 11:27 | ED.URI ---
HPI - URI/Sore Throat General Chief Complaint: Upper Respiratory Infection Stated Complaint: Sore Throat Time Seen by Provider: 05/14/22 11:33 History of Present Illness HPI Narrative: 21-year-old female presented for complaint of sore throat for 4 days. Endorses associated ear pain. She denies sob, wheezing, difficulty maintaining secretions, headache, sinus congestion or drainage, nausea, vomiting, fevers or chills. Took [id number] cough and cold medication yesterday. Denies known sick contacts. Related Data Home Medications Medication Instructions Recorded Confirmed citalopram 20 mg tablet 1 tablet PO DAILY 09/17/21 05/14/22 famotidine 20 mg tablet 20 mg PO DAILY 05/14/22 05/14/22 metformin 500 mg tablet,extended 500 mg PO DAILY 05/14/22 05/14/22 release 24 hr Allergies Allergy/AdvReac Type Severity Reaction Status Date / Time No Known Allergies Allergy Mild Verified 05/14/22 11:07 Review of Systems Review of Systems: CONSTITUTIONAL: Denies body aches, fever, chills, or sweats. EYES: Denies visual changes, redness, or discharge. ENT: Denies rhinorrhea, congestion. CARDIOVASCULAR: Denies chest pain, palpitations, or edema. RESPIRATORY: Denies dyspnea. GASTROINTESTINAL: Denies abdominal pain, nausea, vomiting, or diarrhea. SKIN: Denies rash, itching, or wounds. MUSCULOSKELETAL: Denies back pain, joint pain, or myalgia. NEUROLOGIC: Denies headache PMFSH Past Medical History Medical History (Updated 05/14/22 @ 11:52 by Monserrat Hoyt APRN) Anxiety Depression Surgical History Surgical History Hx of appendectomy Family History Family History Mother Leukemia Other Diabetes mellitus Other Diabetes mellitus Social History Social History Smoking packs per day: 0 Smoking cigarettes per day: 0.0 Years smoked: 2 Smoking pack-years: 0.00 Smoking status: Light tobacco smoker Tobacco type: cigarettes Second hand tobacco smoke exposure: Yes Alcohol intake: never Occupation/Education: other Gender identity (if verbalized by the patient): Female Exam Narrative: GENERAL: Ill-appearing, no acute distress. EYES: conjunctivae clear ENT: Mucous membranes moist. TMs pearly miller with normal light reflex bilaterally; no tragal tenderness. Oropharynx erythematous without lesions. Tonsils enlarged 2+ without exudate. No drooling, no hoarseness, no trismus, uvula midline. No tripod positioning, hot potato voice, or soft palate swelling. NECK: Supple. No lymphadenopathy; tender CHEST: Clear to auscultation, breath sounds equal. No respiratory distress, speaks in full sentences. HEART: Regular rate and rhythm. No murmur heard. SKIN: Warm, dry, no rash. NEURO: Alert and oriented x3. Course Course Emergency Course: Patient is aware of diagnosis, understands and agrees to treatment plan. Anticipatory guidance given. Patient agrees to follow-up as directed and is aware of reasons to seek care at the emergency department. Portions of this record may have been created with voice recognition software Level of Care: Express Care Visit Vital Signs Vital signs: Vital Signs Temperature 97.9 F 05/14/22 11:17 Pulse Rate 104 H 05/14/22 11:17 Respiratory Rate 16 05/14/22 11:17 Blood Pressure 127/65 05/14/22 11:17 Pulse Oximetry 99 05/14/22 11:17 Oxygen Delivery Room Air 05/14/22 11:17 Temperature 97.9 F 05/14/22 11:17 Pulse Rate 104 H 05/14/22 11:17 Respiratory Rate 16 05/14/22 11:17 Blood Pressure 127/65 05/14/22 11:17 Pulse Oximetry 99 05/14/22 11:17 Oxygen Delivery Room Air 05/14/22 11:17 MDM - URI/Sore Throat MDM Narrative Medical decision making narrative: strep result reviewed with pt. Will treat based on PE. Advise supportive treatments. Patient is
== END 2022-05-14 11:54 | disposition home or self-care (01) ==
PROVIDERS: Emergency Provider Nurse Practitioner Family; PCP Nurse Practitioner Family
DX: J02.9 Acute pharyngitis, unspecified (principal); F17.210 Nicotine dependence, cigarettes, uncomplicated; Z79.84 Long term (current) use of oral hypoglycemic drugs
CPT/HCPCS: 87081; 87880; 99213; G0463

== ENCOUNTER 2022-09-27 14:12 | Emergency (ER) | payer OTHER, SELFPAY ==
[2022-09-27] VITALS (19 sets, daily range): BP systolic 120–140; BP diastolic 76–97; PULSE 80–109; RESP 18–32; TEMP 37.2; O2SAT 94–100
--- NOTE | ~2022-09-27 | XR_ITS ---
EXAMINATION: XR chest 2V 09/27/2022 14:34 INDICATION: Chest pain PROCEDURE: 2 view chest COMPARISON: No prior studies for comparison. FINDINGS: The lungs are clear. The cardiomediastinal silhouette is within normal limits. There are no pleural effusions. There is no pneumothorax suspected. IMPRESSION: 1: NO ACUTE CARDIOPULMONARY DISEASE. Reviewed, dictated and finalized at location A.
--- NOTE | 2022-09-27 14:19 | ECG_ITS ---
Measurements Intervals [place] Rate: 98 P: 37 [place]: 153 QRS: 112 QRSD: 86 T: 21 QT: 338 QTc: 432 Interpretive Statements SINUS RHYTHM RIGHT AXIS DEVIATION BORDERLINE R WAVE PROGRESSION, ANTERIOR LEADS MINIMAL Q WAVES- INFERIOR LEADS BORDERLINE T WAVE ABNORMALITY- ANTERIOR LEADS BASELINE WANDER- V2-V6 BORDERLINE ECG NO PREVIOUS ECG AVAILABLE FOR COMPARISON Electronically Signed On 09-27-2022 14:42:34 CDT by Adrian Flowers D.O.
[2022-09-27 14:37] LABS: Basophils Absolute Auto 0.1 K/mm3 (0.0-0.1); Basophils Percent Auto 0.6 % (0.2-1.2); Eosinophils Absolute Auto 0.2 K/mm3 (0-0.3); Hematocrit 45.3 % (37.0-47.0); Immature Granulocyte Absolute 0.03 K/mm3 (0.00-0.031); Immature Granulocyte Percent A 0.4 % (0-0.5); Lymphocytes Absolute Auto 3.32 K/mm3 (0.9-3.2); Lymphocytes Percent Auto 41.3 % (18.3-44.2); Mean Corpuscular HGB Conc 33.1 g/dl (32-36); Mean Corpuscular Hemoglobin 26.1 pg (26-34); Mean Corpuscular Volume 78.8 fl (80-100); Mean Platelet Volume 12.4 fl (7.4-10.4); Monocytes Absolute Auto 0.5 K/mm3 (0.1-0.6); Monocytes Percent Auto 5.8 % (2.6-8.5); Neutrophils Percent Auto 49.9 % (45.5-73.1); Platelet Count Result 270 k/mm3 (150-375); Red Blood Count 5.75 M/mm3 (4.2-5.4); Red Cell Distribution Width 12.8 % (11.5-14.5)
[2022-09-27 14:48] LABS: Alanine Aminotransferase 45 U/L (6-35); Albumin Level 4.8 g/dL (3.5-5.1); Alkaline Phosphatase 157 U/L (38-126); Anion Gap 12 mmol/L (8-16); Aspartate Amino Transferase 28 U/L (14-36); Bilirubin,Total 0.6 mg/dL (0.2-1.3); Blood Urea Nitrogen 16 mg/dL (7-17); Calcium 9.4 mg/dL (8.4-10.2); Carbon Dioxide 21 mmol/L (22-30); Chloride 102 mmol/L (98-107); Estimated CRCL calculation 151 ml/min; Estimated Glomerular Filt Rate > 60; Glucose 301 mg/dL (65-110); Lipase 81 U/L (23-300); Potassium 4.1 mmol/L (3.4-5.0); Sodium 135 mmol/L (137-145)
[2022-09-27 14:50] LABS: INR 0.9; Prothrombin Time 12.2 Seconds (11.1-14.7)
[2022-09-27 14:51] LABS: Partial Thromboplastin Time 23.9 SECONDS (22.3-36.8)
[2022-09-27] MEDS: ASPIRIN 81 MG CHEWABLE TABLET 324 MG PO (14:51)
[2022-09-27 15:00] LABS: Troponin I < 0.012 ng/mL (0.000-0.034)
--- NOTE | 2022-09-27 16:06 | ED.CHESTPAIN ---
HPI - Chest Pain General Chief Complaint: Chest Pain Stated Complaint: cp Time Seen by Provider: 09/27/22 15:32 History of Present Illness HPI narrative: 22-year-old female present to the emergency department for evaluation of left shoulder pain. Patient states she began having the pain yesterday and patient does describe left shoulder pain into her left chest. Patient states pain is worsened with deep inspiration. 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 Patient is PERC negative. Related Data Home Medications Medication Instructions Recorded Confirmed citalopram 20 mg tablet 1 tablet PO DAILY 09/17/21 05/14/22 famotidine 20 mg tablet 20 mg PO DAILY 05/14/22 05/14/22 metformin 500 mg tablet,extended 500 mg PO DAILY 05/14/22 05/14/22 release 24 hr Allergies Allergy/AdvReac Type Severity Reaction Status Date / Time No Known Allergies Allergy Mild Verified 05/14/22 11:07 Review of Systems Review of Systems: All systems reviewed & are unremarkable except as noted in HPI and below PMFSH Past Medical History Medical History (Updated 09/27/22 @ 17:43 by Poli Valadez MD) Anxiety Depression Surgical History Surgical History Hx of appendectomy Family History Family History Mother Leukemia Other Diabetes mellitus Other Diabetes mellitus Social History Social History Smoking packs per day: 0 Smoking cigarettes per day: 0.0 Years smoked: 2 Smoking pack-years: 0.00 Smoking status: Light tobacco smoker Tobacco type: cigarettes Second hand tobacco smoke exposure: Yes Alcohol intake: never Occupation/Education: other Gender identity (if verbalized by the patient): Female Exam Narrative: APPEARANCE: Well appearing, no pain, no distress, well-nourished. HEAD: normocephalic, atraumatic. EYES: PERRLA/EOMI, conjunctivae clear. NOSE: Normal no drainage EARS:TMS clear with good light reflex. THROAT: Pharynx clear, no exudate. NECK: Supple. No adenopathy, no masses. RESPIRATORY: Airway patent, respirations nonlabored. Clear to auscultation bilaterally, no rales, rhonchi, wheezing. CARDIOVASCULAR: Regular rate and rhythm without murmurs rubs or gallops. ABDOMINAL: Soft, nontender, nondistended, normal bowel sounds MUSCULOSKELETAL: Moves all extremities. Strength/ROM intact, No edema, No calf tenderness. Reproducible left chest wall tenderness to palpation with left deltoid tenderness to palpation NEURO: Alert. Cranial nerves II through XII intact. Good gait. Good coordination SKIN: Warm, dry. Normal Color PSYCHIATRIC: Normal affect/mood. Course Course Emergency Course: 22-year-old female present emerged department for evaluation of left shoulder pain left-sided pleuritic chest pain. Patient was PERC negative, low concern for pulm embolism. Patient was afebrile with no leukocytosis and a stable hemoglobin patient has a CMP within normal limits. Patient does have some hyperglycemia but patient is a known diabetic. Chest x-ray shows no acute cardiopulmonary abnormality. EKG shows normal sinus rhythm Patient had negative serial troponins. Patient's symptoms are consistent with pleurisy. Patient was encouraged to take ibuprofen for pain control. All question concerns were addressed and patient was stable at time of discharge from the ED. Vital Signs Vital signs: Vital Signs Temperature 99.0 F 09/27/22 14:28 Pulse Rate 99 09/27/22 14:28 Respiratory Rate 20 09/27/22 14:28 Blood Pressure 140/91 H 09/27/22 14:28 Pulse Oximetry 100 09/27/22 14:28 Oxygen Delivery Room Air 09/27/22 14:28 Temperature 99.0 F 09/27/22 14:28 Pulse Rate 98 09/27/22 17:57 Respiratory Rate 18 09/27/22 17:57 Blood Pressure 133/86 09/27/22 17:57 Pulse Oximetry 100
[2022-09-27] MEDS: KETOROLAC 15 MG/ML VIAL (*BKC) IV PUSH (16:29)
[2022-09-27 17:39] LABS: Troponin I < 0.012 ng/mL (0.000-0.034)
== END 2022-09-27 18:00 | disposition home or self-care (01) ==
PROVIDERS: Emergency Medicine; Emergency Provider Emergency Medicine; PCP Nurse Practitioner Family
DX: R07.89 Other chest pain (principal); F41.9 Anxiety disorder, unspecified; F32.A Depression, unspecified; F17.210 Nicotine dependence, cigarettes, uncomplicated; Z79.84 Long term (current) use of oral hypoglycemic drugs
CPT/HCPCS: 36415; 71046; 80053; 83690; 84484; 85025; 85610; 85730; 93005; 96374; 99284; A9270; J1885

== ENCOUNTER 2022-10-06 15:46 | Emergency (ER) | payer OTHER, SELFPAY ==
[2022-10-06 15:55] VITALS: BP 138/92; PULSE 104; RESP 16; TEMP 37.2; O2SAT 99
--- NOTE | 2022-10-06 16:09 | ED.DENTAL ---
HPI - Dental/Oral General Chief complaint: Dental/Oral Stated complaint: Jaw Pain History of Present Illness HPI Narrative: Pt is a 22 y/o female, presents to with left lower dental pain, onset 3 days ago. she has now developed a small area of swelling below the tooth that she can feel when she palpates the left mandible. She denies sublingual swelling, fevers or trauma. She does not have a dentist, prompting her visit. She is taking APAP and Motrin without much pain relief. She denies any other modifying factors. Related Data Home Medications Medication Instructions Recorded Confirmed citalopram 20 mg tablet 1 tablet PO DAILY 09/17/21 10/06/22 Allergies Allergy/AdvReac Type Severity Reaction Status Date / Time No Known Allergies Allergy Mild Verified 10/06/22 15:52 Review of Systems Constitutional: Comments: no fevers or chills ENT: Comments: refer to HPI Respiratory: Comments: no cough, SOB Gastrointestinal: Comments: no NVDC Integumentary/Breasts: Comments: no skin rashes PMFSH Past Medical History Medical History (Updated 10/06/22 @ 16:15 by LAUREL Lopez) Anxiety Depression Surgical History Surgical History Hx of appendectomy Family History Family History Mother Leukemia Other Diabetes mellitus Other Diabetes mellitus Social History Social History Smoking packs per day: 0 Smoking cigarettes per day: 0.0 Years smoked: 2 Smoking pack-years: 0.00 Smoking status: Light tobacco smoker Tobacco type: cigarettes Second hand tobacco smoke exposure: Yes Alcohol intake: never Occupation/Education: other Gender identity (if verbalized by the patient): Female Exam Const: General: healthy appearing and no acute distress Nutritional Appearance: obese centrally obese Orientation/consciousness: patient oriented x3 Limitations: no limitations HENMT: Head: normal to inspection Ears: external ears normal, TM's normal bilaterally and EAC's normal Face/Nose/Sinus: Normal external nose present and Normal nares present Face and sinus: normal facial exam Mouth: Yes Normal oral and palatal mucosa present Teeth and gingiva: abnormal tooth and associated gingiva lower left second molar tender and other (caries present, percussion tenderness, palpable swelling to the mandible parallel to the affected tooth. no sublingual swelling) Throat: posterior oropharynx normal Neck: Neck: normal visual inspection, no lymphadenopathy and no meningeal signs Resp: Effort & Inspection: normal respiratory effort Auscultation: clear to auscultation bilaterally Cardio: Rate: regular rate Rhythm: regular rhythm Other: HR 94 at PMI Skin: General skin exam: normal color Rashes: no rashes Neuro: General: patient oriented x3, moves all extremities, no meningeal signs, no focal motor deficits and CN's II-XI intact bilaterally Course Course Emergency Course: suspect small focal dental abscess. Plan to treat with Augmentin, Dental list will be provided, continued APAP and Motrin at home for dentalgia Level of Care: [facility] Care Visit ([id number]) Vital Signs Vital signs: Vital Signs Temperature 37.2 C 10/06/22 15:55 Pulse Rate 104 H 10/06/22 15:55 Respiratory Rate 16 10/06/22 15:55 Blood Pressure 138/92 H 10/06/22 15:55 Pulse Oximetry 99 10/06/22 15:55 Oxygen Delivery Room Air 10/06/22 15:55 Temperature 37.2 C 10/06/22 15:55 Pulse Rate 104 H 10/06/22 15:55 Respiratory Rate 16 10/06/22 15:55 Blood Pressure 138/92 H 10/06/22 15:55 Pulse Oximetry 99 10/06/22 15:55 Oxygen Delivery Room Air 10/06/22 15:55 MDM - Dental/Oral MDM Narrative Medical decision making narrative: will treat with oral abx for dental abscess, ER if sublingual
== END 2022-10-06 16:22 | disposition home or self-care (01) ==
PROVIDERS: Emergency Provider Nurse Practitioner Family; PCP Nurse Practitioner Family
DX: K04.7 Periapical abscess without sinus (principal); F17.210 Nicotine dependence, cigarettes, uncomplicated; F41.9 Anxiety disorder, unspecified; F32.A Depression, unspecified
CPT/HCPCS: 99213; G0463

== ENCOUNTER 2023-01-02 10:26 | Emergency (ER) | payer OTHER, SELFPAY ==
[2023-01-02 10:39] VITALS: BP 117/82; PULSE 93; RESP 16; TEMP 36.3; O2SAT 100
--- NOTE | 2023-01-02 10:54 | ED.EXTPRO ---
HPI - Extremity Problem General Chief complaint: Extremity Problem,Nontraumatic Stated complaint: right foot problem Time Seen by Provider: 01/02/23 10:42 Source: patient and RN notes reviewed Mode of arrival: ambulatory Limitations: no limitations History of Present Illness HPI Narrative: Patient presents today with a 2 week history of pain to her right foot. Denies injury or trauma. Denies numbness or tingling to the foot or toes. She has been taking Tylenol and ibuprofen at home without relief. History of diabetes and reports that blood sugars are well controlled with Ozempic. Related Data Home Medications Medication Instructions Recorded Confirmed citalopram 20 mg tablet 1 tablet PO DAILY 09/17/21 01/02/23 ergocalciferol (vitamin D2) 1,250 1,250 mcg PO DIRECTED 01/02/23 01/02/23 mcg (50,000 unit) capsule semaglutide 0.25 mg or 0.5 mg (2 0.25 mg subcut DIRECTED 01/02/23 01/02/23 mg/3 mL) subcutaneous pen injector (Ozempic) Allergies Allergy/AdvReac Type Severity Reaction Status Date / Time No Known Allergies Allergy Mild Verified 01/02/23 10:38 Review of Systems Review of Systems: CONSTITUTIONAL: Denies body aches, fever, chills, or sweats. EYES: Denies visual changes, redness, or discharge. ENT: Denies rhinorrhea, congestion, sore throat, or otalgia. CARDIOVASCULAR: Denies chest pain, palpitations, or edema. RESPIRATORY: Denies cough or dyspnea. GASTROINTESTINAL: Denies abdominal pain, nausea, vomiting, or diarrhea. GENITOURINARY: Denies dysuria or hematuria. SKIN: Denies rash, itching, or wounds. MUSCULOSKELETAL: Denies back pain, or myalgia. + right foot pain. NEUROLOGIC: Denies headache, numbness, tingling, or weakness. PSYCH: Denies depression or anxiety. [facility] Past Medical History Medical History (Updated 01/02/23 @ 11:05 by Mendy Dinero, [facility], ) Anxiety Depression Diabetes Surgical History Surgical History Hx of appendectomy Family History Family History Mother Leukemia Other Diabetes mellitus Other Diabetes mellitus Social History Social History Smoking packs per day: 0 Smoking cigarettes per day: 0.0 Years smoked: 2 Smoking pack-years: 0.00 Smoking status: Light tobacco smoker Tobacco type: cigarettes Second hand tobacco smoke exposure: Yes Alcohol intake: never Occupation/Education: other Gender identity (if verbalized by the patient): Female Comments At time of signature, I have reviewed and agree with nursing past medical, surgical, social and family history unless otherwise noted. Please see nursing chart for further information. There is no relevant family history pertinent to the presenting complaint Exam Narrative: GENERAL: Well-appearing, well-nourished, and in no acute distress. HEAD: Normocephalic, atraumatic. EYES: EOMI. No redness or drainage. Conjunctivae normal. ENT: Mucous membranes pink and moist. EXTREMITIES: Right foot; Tenderness to the dorsum of the foot and extends down to the toes. No ecchymosis or erythema noted. No edema. Distal sensation intact, capillary refill normal, pedal pulse normal. Full ROM of ankle and toes. SKIN: Warm, dry, no rash. Capillary refill normal. Normal skin turgor. NEURO: No focal deficits. Alert and oriented x3. Gait steady. PSYCH: Normal affect. No signs of depression or anxiety. Course Course Level of Care: Express Care Visit Vital Signs Vital signs: Vital Signs Temperature 97.4 F L 01/02/23 10:39 Pulse Rate 93 01/02/23 10:39 Respiratory Rate 16 01/02/23 10:39 Blood Pressure 117/82 01/02/23 10:39 Pulse Oximetry 100 01/02/23 10:39 Oxygen Delivery Room Air 01/02/23 10:39 Temperature 97.4 F L 01/02/23 10:39 Pulse Rate 93 01/02/23 10:39 Respiratory Rate 16 01/02/23 1
== END 2023-01-02 11:15 | disposition home or self-care (01) ==
PROVIDERS: Emergency Provider Nurse Practitioner; PCP Nurse Practitioner Family
DX: M79.671 Pain in right foot (principal); F41.9 Anxiety disorder, unspecified; F32.A Depression, unspecified; E11.9 Type 2 diabetes mellitus without complications; Z72.0 Tobacco use
CPT/HCPCS: 99213; G0463

== ENCOUNTER 2023-01-12 10:39 | Emergency (ER) | payer OTHER, SELFPAY ==
[2023-01-12 10:47] VITALS: BP 108/81; PULSE 90; RESP 16; TEMP 37; O2SAT 99
[2023-01-12 10:48] VITALS: BP 108/81; PULSE 90; RESP 16; TEMP 37; O2SAT 99
--- NOTE | 2023-01-12 10:55 | ED.EYEPROB ---
HPI - Eye Problem General Chief complaint: Eye Problems Stated complaint: both eyes red, irritated Time Seen by Provider: 01/12/23 10:48 Source: patient Mode of arrival: ambulatory Limitations: no limitations History of Present Illness HPI Narrative: 22-year-old female presented for complaint of bilateral eye redness and irritation over the past couple of days. She states this morning she woke with a right eye crusted shut. Endorses itching and burning with discharge, right is worse than the left. She denies known sick contacts but states her niece has been exposed to pinkeye. Denies headache, rhinorrhea, vision changes, Photophobia, dizziness, nausea, vomiting, fevers or chills. No treatment PATIENT ADVOCATE. Does not wear contact lenses. MD chief complaint: eye pain Related Data Home Medications Medication Instructions Recorded Confirmed citalopram 20 mg tablet 1 tablet PO DAILY 09/17/21 01/02/23 ergocalciferol (vitamin D2) 1,250 1,250 mcg PO DIRECTED 01/02/23 01/02/23 mcg (50,000 unit) capsule semaglutide 0.25 mg or 0.5 mg (2 0.25 mg subcut DIRECTED 01/02/23 01/02/23 mg/3 mL) subcutaneous pen injector (Ozempic) metformin 500 mg tablet 500 mg PO DAILY 01/12/23 01/12/23 Allergies Allergy/AdvReac Type Severity Reaction Status Date / Time No Known Allergies Allergy Mild Verified 01/12/23 10:47 Review of Systems Review of Systems: CONSTITUTIONAL: Denies body aches, fever, chills EYES:Endorses redness, pain, drainage; Denies swelling, visual changes, FB sensation, photophobia ENT: Denies rhinorrhea, congestion, sore throat, or otalgia. CARDIOVASCULAR: Denies chest pain, palpitations RESPIRATORY: Denies cough or dyspnea. GASTROINTESTINAL: Denies abdominal pain, nausea, vomiting, or diarrhea. SKIN: Denies rash, itching, or wounds. MUSCULOSKELETAL: Denies back pain, joint pain, or myalgia. NEUROLOGIC: Denies headache, numbness, tingling, or weakness. All systems reviewed & are unremarkable except as noted in HPI and below PMFSH Past Medical History Medical History (Updated 01/12/23 @ 11:00 by Monserrat Douglas APRN) Anxiety Depression Diabetes Surgical History Surgical History (Updated 01/12/23 @ 11:00 by Monserrat Douglas APRN) History of tonsillectomy Hx of appendectomy Family History Family History Mother Leukemia Other Diabetes mellitus Other Diabetes mellitus Social History Social History Smoking packs per day: 0 Smoking cigarettes per day: 0.0 Years smoked: 2 Smoking pack-years: 0.00 Smoking status: Light tobacco smoker Tobacco type: cigarettes Second hand tobacco smoke exposure: Yes Alcohol intake: never Occupation/Education: other Gender identity (if verbalized by the patient): Female Comments At time of signature, I have reviewed and agree with nursing past medical, surgical, social and family history unless otherwise noted. Please see nursing chart for further information. There is no relevant family history pertinent to the presenting complaint Exam Narrative: GENERAL: Well-appearing HEAD: Normocephalic, atraumatic. EYES: bilateral conjunctival injection, clear drainage; No eye lid swelling. PERRLA, EOMI. Lid eversion shows no FB. ENT: Mucous membranes pink and moist. No rhinorrhea. TMs normal bilaterally. Throat normal. Uvula midline. CHEST: Clear to auscultation. HEART: Regular rate and rhythm. ABDOMEN: Soft, nontender, nondistended SKIN: Warm, dry, no rash. Normal skin turgor. NEURO: No focal deficits. Alert and oriented x3 PSYCH: Normal affect. Course Course Emergency Course: Patient is aware of diagnosis, understands and agrees to treatment plan. Anticipatory guidance given. Patient agrees to follow-up as directed and is aware of reasons to seek care at the emergency department. Portions of this record may have
== END 2023-01-12 10:56 | disposition home or self-care (01) ==
PROVIDERS: Emergency Provider Nurse Practitioner Family; PCP Nurse Practitioner Family
DX: H10.9 Unspecified conjunctivitis (principal); E11.9 Type 2 diabetes mellitus without complications; F41.9 Anxiety disorder, unspecified; F32.A Depression, unspecified
CPT/HCPCS: 99213; G0463

== ENCOUNTER 2023-07-19 15:46 | Outpatient (CLI) | payer OTHER, SELFPAY ==
--- NOTE | ~2023-07-19 | XR_ITS ---
EXAMINATION: XR chest 2V Exam Date/Time: 07/19/2023 15:58 CDT HISTORY: CHEST PAIN Comparison: 09/27/2022. RESULT: Lines, tubes, and devices: None. Lungs and pleura: Clear. Cardiomediastinal silhouette: Stable. Other: No acute osseous or upper abdominal finding. IMPRESSION: No acute cardiopulmonary process. Reviewed, dictated and finalized at location K.
== END 2023-07-19 15:47 | disposition home or self-care (01) ==
LOC: ANHIMG 15:47
PROVIDERS: PCP Nurse Practitioner Family; Visit Provider Nurse Practitioner Adult Health
DX: R07.9 Chest pain, unspecified (principal)
CPT/HCPCS: 71046

== ENCOUNTER 2023-08-25 09:45 | Outpatient (CLI) | payer OTHER, SELFPAY ==
--- NOTE | 2023-08-26 10:16 | WPDPFTINT ---
PFT Procedure Performed PFT Procedure Performed Plethysmography (Lung Vol) Diffusing Cap (DLCO) Flow Vol Loop Spirometry w/o Bronchodil PFT Interpretation Lung volumes were assessed using the body plethysmography method and found to be within normal limits. Spirometry results indicated normal expiratory flow rates and a normal FEV1/FVC ratio of 81%. A post-bronchodilator study was not performed. If obstructive airway disease is suspected in this young female, repeat spirometry after bronchodilator administration may be warranted. Clinical correlation is recommended. Lung diffusion capacity is normal at 79% of the predicted value. The flow-volume loop is also unremarkable. Impression: Spirometry, lung volumes, and lung diffusion capacity all within the normal range.
== END 2023-08-25 09:46 | disposition home or self-care (01) ==
LOC: ANHPFT 09:46
PROVIDERS: PCP Nurse Practitioner Family; Visit Provider Nurse Practitioner Adult Health
DX: R06.00 Dyspnea, unspecified (principal)
CPT/HCPCS: 94375; 94726; 94729

== ENCOUNTER 2023-10-06 11:55 | Emergency (ER) | payer OTHER, SELFPAY ==
[2023-10-06 12:07] VITALS: BP 142/92; PULSE 78; RESP 15; TEMP 36.4; O2SAT 100
--- NOTE | 2023-10-06 12:09 | ED.EAR ---
HPI - Ear Problem General Chief complaint: Ear Stated complaint: left earache Source: patient, RN notes reviewed and old records reviewed Mode of arrival: ambulatory Limitations: no limitations History of Present Illness HPI Narrative: Patient presents today with complaints of left ear pain for 2 weeks. She denies any injury or trauma. She does report that she had some discharge at the onset. She reports she is diabetic, well controlled blood sugars typically 120. She denies any fever, chills, sweats. She voices no other concerns or complaints today. Related Data Home Medications Medication Instructions Recorded Confirmed empagliflozin 10 mg tablet 10 mg PO DAILY 10/06/23 10/06/23 (Jardiance) semaglutide 2 mg/dose (8 mg/3 mL) See Rx Instructions .Route .COMPLEX 10/06/23 10/06/23 subcutaneous pen injector (Ozempic) Allergies Allergy/AdvReac Type Severity Reaction Status Date / Time No Known Allergies Allergy Mild Verified 10/06/23 12:01 Review of Systems Review of Systems: All systems reviewed & are unremarkable except as noted in HPI and below Constitutional: Constitutional: Reports no additional constitutional complaints ENT: Reports system reviewed and no additional complaints, except as documented Cardiovascular: Cardiovascular: Reports no additional cardiovascular complaints Respiratory: Respiratory: Reports no additional respiratory complaints Gastrointestinal: Gastrointestinal: Reports no additional gastrointestinal complaints Endocrine: Endocrine: Reports as per HPI [facility] Past Medical History Medical History (Updated 10/06/23 @ 12:18 by Laurie Martinez APRN) Anxiety Depression Diabetes Surgical History Surgical History History of tonsillectomy Hx of appendectomy Family History Family History Mother Leukemia Other Diabetes mellitus Other Diabetes mellitus Social History Social History Smoking packs per day: 0 Smoking cigarettes per day: 0.0 Years smoked: 2 Smoking pack-years: 0.00 Smoking status: Light tobacco smoker Tobacco type: cigarettes Second hand tobacco smoke exposure: Yes Alcohol intake: never Occupation/Education: other Gender identity (if verbalized by the patient): Female Comments At the time of my signature, I reviewed and agree with the nursing past medical, surgical, social, and family history. There is no relevant family history pertinent to the patient complaint. Exam Const: General: cooperative, no acute distress, alert and awake Orientation/consciousness: oriented to person, oriented to place and oriented to time HENMT: Head: normal to inspection Ears: TM normal on the right, TM normal on the left and Abnormal EAC present erythema (left), edema (left) and EAC tenderness (left) Resp: Effort & Inspection: normal respiratory effort and able to speak in complete sentences Auscultation: clear to auscultation bilaterally, no crackles, no rales, no rhonchi and no wheezes Cardio: Palpation: normal PMI Rate: regular rate Rhythm: regular rhythm Heart sounds: S1 normal heart sound present and S2 normal heart sound present Neuro: General: oriented to person, oriented to place and oriented to time Cranial nerves: Yes CN's II-XII intact bilaterally Psych: Appearance: grossly normal Thought process: Normal thought process present Insight: Good insight present (Psych) Judgement: Good judgement present (Psych) Course Course Level of Care: Express Care Visit Vital Signs Vital signs: Vital Signs Temperature 97.5 F L 10/06/23 12:07 Pulse Rate 78 10/06/23 12:07 Respiratory Rate 15 10/06/23 12:07 Blood Pressure 142/92 H 10/06/23 12:07 Pulse Oximetry 100 10/06/23 12:07 Oxygen Delivery Room Air 10/06/23 12:07 Temperature 97.5 F L 10/06/23 12:0
== END 2023-10-06 12:23 | disposition home or self-care (01) ==
PROVIDERS: Emergency Provider Nurse Practitioner Family; PCP Nurse Practitioner Adult Health
DX: H60.332 Swimmer's ear, left ear (principal); F17.210 Nicotine dependence, cigarettes, uncomplicated; E11.9 Type 2 diabetes mellitus without complications; Z79.84 Long term (current) use of oral hypoglycemic drugs
CPT/HCPCS: 99213; G0463

== ENCOUNTER 2023-11-30 08:23 | Outpatient (CLI) | payer OTHER, SELFPAY ==
--- NOTE | 2023-11-30 | EST_ITS ---
Patient Info Name: Galina Amos Age: 23 years : 2000 Gender: Female Ht: 65 in Wt: 232 lbs BSA: 2.25 m2 HR: 80 bpm BP: 102 / 64 mmHg Exam Date: 11/30/2023 8:53 AM Exam Location: Echo Lab Patient Status: Outpatient Admit Date: 11/30/2023 Staff Ordering Physician: Andrey, Melida Young APRN Therapy Manager: Cecily Goodwin RDCS Attending Provider: ADRIAN DUKE Referring Physician: Andrey BRAVO; Exercise Technologist: Cecily Goodwin RDCS Exercise Physician: Adrian Duke DO Exam Type: CA stress echo Study Info Indications R07.9 - Chest pain, unspecified Treadmill exercise stress echocardiogram is performed. Summary 1. 1. Negative Gabriel exercise stress test for ischemic ST changes by ECG criteria. 2. 2. Reduced functional capacity, achieving 8.6 METs of workload. 3. 3. Appropriate HR response to exercise. 4. 4. Appropriate HR recovery at 1 minute post exercise. 5. 5. Negative stress echocardiogram for ischemia by wall motion analysis. 6. 6. Patient informed of the above results. Stress Echo Findings Left Ventricle Appropriate increase in LV endocardial thickening with systole. Appropriate augmentation of contractility with systole. No wall motion abnormality. Left Ventricle Normal LV systolic function, no wall motion abnormality. Protocol: Gabriel Stress ECG Details Stage: REST Duration (min): 1 min : 23 sec Speed (mph): 0.0 Grade (%): 0 HR (bpm): 77 SBP (mmHg): 102 DBP (mmHg): 64 METS: --- Stage: REST Duration (min): 7 min : 19 sec Speed (mph): 0.0 Grade (%): 0 HR (bpm): 77 SBP (mmHg): 102 DBP (mmHg): 64 METS: --- Stage: STAGE 1 Duration (min): 1 min : 0 sec Speed (mph): 1.7 Grade (%): 10 HR (bpm): 109 SBP (mmHg): 102 DBP (mmHg): 64 METS: --- Stage: STAGE 1 Duration (min): 2 min : 0 sec Speed (mph): 1.7 Grade (%): 10 HR (bpm): 117 SBP (mmHg): 102 DBP (mmHg): 64 METS: --- Stage: STAGE 1 Duration (min): 3 min : 0 sec Speed (mph): 1.7 Grade (%): 10 HR (bpm): 120 SBP (mmHg): 144 DBP (mmHg): 79 METS: --- Stage: STAGE 2 Duration (min): 1 min : 0 sec Speed (mph): 2.5 Grade (%): 12 HR (bpm): 132 SBP (mmHg): 144 DBP (mmHg): 79 METS: --- Stage: STAGE 2 Duration (min): 2 min : 0 sec Speed (mph): 2.5 Grade (%): 12 HR (bpm): 139 SBP (mmHg): 144 DBP (mmHg): 79 METS: --- Stage: STAGE 2 Duration (min): 3 min : 0 sec Speed (mph): 2.5 Grade (%): 12 HR (bpm): 145 SBP (mmHg): 235 DBP (mmHg): 88 METS: --- Stage: STAGE 3 Duration (min): 0 min : 55 sec Speed (mph): 0.0 Grade (%): 0 HR (bpm): 153 SBP (mmHg): 235 DBP (mmHg): 88 METS: --- Stage: RECOVERY Duration (min): 0 min : 4 sec Speed (mph): 0.0 Grade (%): 0 HR (bpm): 125 SBP (mmHg): 235 DBP (mmHg): 88 METS: --- Stage: RECOVERY Duration (min): 1 min : 4 sec Speed (mph): 0.0 Grade (%): 0 HR (bpm): 98 SBP (mmHg): 235 DBP (mmHg): 88 METS: ---
== END 2023-11-30 08:24 | disposition home or self-care (01) ==
LOC: ANHCARD 08:24
PROVIDERS: PCP Nurse Practitioner Adult Health; Visit Provider Nurse Practitioner Adult Health
DX: R07.9 Chest pain, unspecified (principal); R06.00 Dyspnea, unspecified; E66.01 Morbid (severe) obesity due to excess calories; Z68.35 Body mass index [BMI] 35.0-35.9, adult
CPT/HCPCS: 93351

== ENCOUNTER 2023-12-26 11:27 | Emergency (ER) | payer OTHER, SELFPAY ==
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
[2023-12-26 11:43] VITALS: BP 123/83; PULSE 88; RESP 19; TEMP 36.8; O2SAT 100
--- NOTE | 2023-12-26 11:46 | ED.SKABFB ---
HPI - Skin/Abscess/Foreign Bdy General Chief complaint: Extremity Injury, Upper Stated complaint: Right Hand Middle Finger Pain Time Seen by Provider: 12/26/23 12:23 Source: patient and RN notes reviewed Mode of arrival: ambulatory Limitations: dementia History of Present Illness HPI narrative: 23-year-old female with history of diabetes presents with concern for injury to the 3rd digit of her right hand. Reports 3 days ago she smashed his finger in a camping bathroom stall door.. Reports she had lacerations to size of the digit. Reports she has been using liquid bandage. She reports pain in the distal digit, swelling. She reports pain with moving finger, she reports decreased sensation to the distal digit. She reports she has been using liquid bandage but is still having some drainage bleeding stool laceration. MD complaint: other (Redness) Related Data Home Medications Medication Instructions Recorded Confirmed empagliflozin 10 mg tablet 10 mg PO DAILY 10/06/23 10/06/23 (Jardiance) semaglutide (weight loss) 2.4 mg subcut 12/26/23 mg/0.75 mL subcutaneous pen injector (Wegovy) Allergies Allergy/AdvReac Type Severity Reaction Status Date / Time No Known Allergies Allergy Mild Verified 12/26/23 11:51 Review of Systems Review of Systems: CONSTITUTIONAL: Denies malaise, chills, sweats, or fever. EYES: Denies redness, or discharge. ENT: Denies rhinorrhea, congestion, swollen lips, swollen tongue CARDIOVASCULAR: Denies chest pain, palpitations, or edema. RESPIRATORY: Denies cough or dyspnea. GASTROINTESTINAL: Denies abdominal pain, nausea, vomiting SKIN: Reports redness, swelling. Denies purulent drainage, vesicles, bullae, numbness, pain beyond proportion MUSCULOSKELETAL: Denies joint pain or myalgia. NEUROLOGIC: Denies headache. All systems reviewed & are unremarkable except as noted in HPI and below PMFSH Past Medical History Medical History (Updated 12/26/23 @ 12:34 by Una Heredia NP) Anxiety Depression Diabetes Surgical History Surgical History History of tonsillectomy Hx of appendectomy Family History Family History Mother Leukemia Other Diabetes mellitus Other Diabetes mellitus Social History Social History Smoking packs per day: 0 Smoking cigarettes per day: 0.0 Years smoked: 2 Smoking pack-years: 0.00 Smoking status: Light tobacco smoker Tobacco type: cigarettes Second hand tobacco smoke exposure: Yes Alcohol intake: never Occupation/Education: other Gender identity (if verbalized by the patient): Female Comments At time of signature, agree with nursing past medical, surgical, social and family history. There is no relevant family history pertinent to the presenting complaint Exam Narrative: GENERAL: Well-appearing, well-nourished, and in no acute distress. HEAD: Normocephalic, atraumatic. EYES: PERRLA, conjunctivae clear ENT: Mucous membranes moist. NECK: Supple. No lymphadenopathy CHEST: Clear to auscultation. No respiratory distress. HEART: Regular rate and rhythm. SKIN: Warm, dry. Approximately a 1 cm lacerations noted to the dorsal palmar aspect of the 3rd digit of right hand. The palmar laceration scab with a liquid bandage covering it. The dorsal laceration has a yellow tissue bed with liquid bandage intact. No surrounding erythema or induration NEURO: Alert and oriented x3. PSYCH: Normal mood and affect Course Course Emergency Course: Patient is aware of diagnosis, understands and agrees to treatment plan. Anticipatory guidance given. Patient agrees to follow-up as directed and is aware of reasons to seek care at the emergency department. Portions of this record may have been created with voice recognition software Level of Care: Express Care Visit Vit
== END 2023-12-26 13:07 | disposition home or self-care (01) ==
PROVIDERS: Emergency Provider Nurse Practitioner; PCP Nurse Practitioner Adult Health
DX: S61.212A Laceration without foreign body of right middle finger without damage to nail, initial encounter (principal); X58.XXXA Exposure to other specified factors, initial encounter; E11.9 Type 2 diabetes mellitus without complications; F17.210 Nicotine dependence, cigarettes, uncomplicated
CPT/HCPCS: 73140; 99213; G0463

== ENCOUNTER 2024-03-14 11:46 | Emergency (ER) | payer OTHER, SELFPAY ==
[2024-03-14 11:52] VITALS: BP 143/79; PULSE 88; RESP 16; TEMP 36.8; O2SAT 99
--- NOTE | 2024-03-14 12:21 | ED.URI ---
HPI - URI/Sore Throat General Chief Complaint: Upper Respiratory Infection Stated Complaint: Cough/sinus/Chest pain with cough Time Seen by Provider: 03/14/24 12:21 Source: patient Mode of arrival: ambulatory Limitations: no limitations History of Present Illness HPI Narrative: 23-year-old female presents with complaint of nasal congestion, cough, postnasal drainage, sore throat, fatigue for the past 5 days. Afebrile. Not taking any [id number] medications to treat her symptoms. Cough is worse at night. No chest pain or shortness of breath. All systems reviewed and negative except as noted above. Related Data Home Medications ?Medication ?Instructions ?Recorded ?Confirmed ?Last Taken ?Type empagliflozin 10 mg tablet 10 mg PO DAILY 10/06/23 10/06/23 Unknown History (Jardiance) semaglutide (weight loss) 2.4 mg subcut 12/26/23 Unknown History mg/0.75 mL subcutaneous pen injector (Wegovy) citalopram 20 mg tablet (Celexa) 10 mg PO DAILY 03/14/24 03/14/24 Unknown History Allergies Allergy/AdvReac Type Severity Reaction Status Date / Time No Known Allergies Allergy Mild Verified 03/14/24 11:52 Review of Systems Review of Systems: CONSTITUTIONAL: Denies fever, chills, or sweats. EYES: Denies visual changes, redness, or discharge. ENT: Reports rhinorrhea, congestion, sore throat, postnasal drainage. Deniesotalgia. CARDIOVASCULAR: Denies chest pain, palpitations, or edema. RESPIRATORY: reports cough. Denies dyspnea. GASTROINTESTINAL: Denies abdominal pain, nausea, vomiting, or diarrhea. GENITOURINARY: Denies dysuria or hematuria. SKIN: Denies rash or itching. MUSCULOSKELETAL: Denies back pain, joint pain, or myalgia. NEUROLOGIC: Denies headache, numbness, or weakness. PSYCHIATRIC: Denies anxiety or depression. All other systems reviewed are negative, except as documented in HPI. [facility] Past Medical History Medical History (Updated 03/14/24 @ 13:00 by Tiffanie Marquez NP) Diabetes Anxiety Depression Surgical History Surgical History History of tonsillectomy Hx of appendectomy Family History Family History Mother Leukemia Other Diabetes mellitus Other Diabetes mellitus Social History Social History Smoking packs per day: 0 Smoking cigarettes per day: 0.0 Years smoked: 2 Smoking pack-years: 0.00 Smoking status: Light tobacco smoker Tobacco type: cigarettes Second hand tobacco smoke exposure: Yes Alcohol intake: never Occupation/Education: other Gender identity (if verbalized by the patient): Female Comments At time of signature, agree with nursing past medical, surgical, social and family history. There is no relevant family history pertinent to the presenting complaint. Exam Narrative: GENERAL: This is a well-nourished, well-developed patient, in no apparent distress. HEAD: normocephalic, atraumatic. EYES: PERRL. Sclera clear/white. Vision is grossly intact. EARS: External ears normal, auditory canals clear and without drainage, TMs normal without perforation. Hearing grossly intact. NOSE: External nose normal with mild congestion, clear nasal drainage THROAT: Mucous membranes moist, erythema With clear postnasal drainage. No swelling or exudates. NECK: Neck supple, non-tender without lymphadenopathy, masses or thyromegaly. CARDIOVASCULAR: Regular rate and rhythm without murmurs, gallops, or rubs. RESPIRATORY: Clear to auscultation. Breath sounds equal bilaterally. No wheezes, rales, or rhonchi. SKIN: warm, Dry, intact with no suspicious lesions or rash, good texture and turgor. NEURO: awake, alert, and oriented to person, place and time. There were no obvious focal neurologic abnormalities. EXTREMITIES: No joint tenderness, effusion, or edema noted. Course Course Level of Care: Express Care Visit Vital Signs Vital signs: Vital Signs Temperature 36.8 C 03/14/24 11:52 Pulse Rate 88 03/14/24 11:52 Respiratory Rate 16 03/14/24 11:52 Blood Pressure 143/79 H 03/14/24 11:52 Pulse Oximetry 99 03/14/24 11:52 Oxygen Delivery Room Air 03/14/24 11:52 Temperature 36.8 C 03/14/24 11:52 Pulse Rate 88 03/14/24 11:52 Respiratory Rate 16 03/14/24 11:52 Blood Pressure 143/79 H 03/14/24 11:52 Pulse Oximetry 99 03/14/24 11:52 Oxygen Delivery Room Air 03/14/24 11:52 reviewed MDM - URI/Sore Throat MDM Narrative Medical decision making narrative: patient well-appearing. Lungs clear to auscultation. Negative COVID and influenza testing. Recommend [id number] medications to treat symptoms. Patient is aware of diagnosis, understands and agrees to treatment plan. Anticipatory guidance given. Patient agrees to follow-up as directed and is aware of reasons to seek care at the emergency department. Portions of this record may have been created with voice recognition software Differential Diagnosis Differential diagnosis: Likely upper respiratory infection, sinusitis, viral infection and influenza Lab Data Labs: Lab Results 03/14/24 Range/Units 12:30 POC Influenza A Ag Negative (Negative) POC Influenza B Ag Negative (Negative) POC SARS CoV-2 Ag Negative (Negative) Discharge Plan Discharge Clinical Impression: Viral upper respiratory tract infection with cough Patient Disposition: Home, Self-Care Condition: Stable Instructions: Antibiotic Form Additional Instructions: your COVID and influenza test were negative today. Your symptoms are viral and may last 10-14 days. Take medications as prescribed. Drink at least 64 oz of water a day. Follow-up with your primary care physician if symptoms are not improving. Patient Language: Korean Prescriptions: New benzonatate 200 mg capsule 200 mg PO TID PRN (Reason: cough) Qty: 20 0RF methylprednisolone [Medrol (Alen)] 4 mg tablets,dose pack See Rx Instructions PO .COMPLEX Qty: 21 0RF Rx Instructions: orally per package directions fluticasone propionate [Flonase Allergy Relief] 50 mcg/actuation spray,suspension 1 spray intranasal BID Qty: 16 0RF Rx Instructions: administer into each nostril guaifenesin [Mucinex] 600 mg tablet extended release 12hr 600 mg PO BID 10 Days Qty: 20 0RF No Action citalopram [Celexa] 20 mg tablet 10 mg PO DAILY Jardiance 10 mg tablet 10 mg PO DAILY Wegovy 2.4 mg/0.75 mL pen injector SUBCUT Follow-up/Referrals: Andrey,Melida Young APRN [Primary Care Provider] - Time of Disposition: 13:00
[2024-03-14 12:47] LABS: EDCOVIDSCREEN Negative (Negative); EDINFLUASCREEN Negative (Negative); EDINFLUBSCREEN Negative (Negative)
== END 2024-03-14 13:10 | disposition home or self-care (01) ==
PROVIDERS: Emergency Provider Nurse Practitioner Family; PCP Nurse Practitioner Adult Health
DX: J06.9 Acute upper respiratory infection, unspecified (principal); B97.89 Other viral agents as the cause of diseases classified elsewhere; E11.9 Type 2 diabetes mellitus without complications; F17.210 Nicotine dependence, cigarettes, uncomplicated; Z20.822 Contact with and (suspected) exposure to COVID-19
CPT/HCPCS: 87426; 87804; 99213; G0463

== ENCOUNTER 2024-07-23 16:32 | Emergency (ER) | payer SELFPAY ==
--- OUTSIDE RECORDS SUMMARY | 2024-07-23 16:35 | XMS_ITS | Clinical Summary ---
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 as directed 3 Active Dexcom G6 Sensor device CHANGE EVERY 10 DAYS 3 Active Dexcom G6 Transmitter device CHANGE EVERY 90 DAYS 3 Active citalopram (CeleXA) 20 mg tablet Take 1 tablet (20 mg total) by mouth nightly 3 Active metFORMIN (GLUCOPHAGE) 1,000 mg tablet Take 1 tablet (1,000 mg total) by mouth 2 (two) times a day 2 Active methocarbamoL (ROBAXIN) 750 mg tablet Take by mouth 3 (three) times a day 3 Active rosuvastatin (CRESTOR) 20 mg tablet Take 1 tablet (20 mg total) by mouth nightly 3 Active acetaminophen (TYLENOL) 500 mg tablet TAKE 2 TABLETS BY MOUTH THREE TIMES A DAY NEEDED FOR PAIN FOR 7 DAYS 3 Active cetirizine (ZyrTEC) 10 mg tablet Take 1 tablet (10 mg total) by mouth daily Active cholecalciferol (VITAMIN D-3) 2000 unit capsule Take by mouth Active ergocalciferol (VITAMIN D) 50,000 unit capsule Take 1 capsule (50,000 Units total) by mouth once a week 4 capsule 1 3 Active famotidine (PEPCID) 20 mg tablet Take 1 tablet (20 mg total) by mouth daily Active fluticasone propionate (FLONASE) 50 mcg/actuation nasal spray Administer 2 sprays into affected nostril(s) daily 2 Active Active Problems Problem Noted Date Diagnosed Date Chronic tonsillitis 06/16/2022 Assessment & Plan (06/16/2022 12:46 PM CDT): I think she would benefit from a tonsillectomy. I discussed the risks of tonsillectomy and adenoidectomy with the patient. There is risk of bleeding which can occur in approximately 2-3% of patients during the 1st 2 weeks of recovery. Some risk of permanent loss of taste sensation. Risk of anesthesia and airway complications also. She understands and she indicates that she would like to go ahead and pursue this. Is being scheduled. She had no questions. Surgical History Surgery Date Site/Laterality Comments APPENDECTOMY 03/07/2018 - 03/06/2019 TONSILLECTOMY 07/16/2022 Bilateral Medical History Medical History Date Comments Anxiety Diabetes (HCC) Type 2 diabetes mellitus (HCC) Obesity Hyperlipidemia Last menstrual period (LMP) date this week 06/30/22 Family History Medical History Relation Name Comments Leukemia Mother Relation Name Status Comments Mother Social History Tobacco Use Types Packs/Day Years Used Date Smoking Tobacco: Former Cigarettes 0.5 4 2 018 - 2021 Smokeless Tobacco: Never Tobacco Cessation:Counseling Given: Not Answered AUDIT-C Answer Date Recorded Q1: How often do you have a drink containing alc ohol? 2-4 times a month 06/30/2022 Q2: How many drinks containi ng alcohol do you have on a typical day when you are drinking? 3 or 4 06/30/2022 Q3: How often do you have si x or more drinks on one occasion? Never 06/30/2022 Personal Safety Answer Date Recorded Getting School Help Needed Not on file 08/19 Comments Unknown Sex and Gender Information Value Date Recorded Sex Assigned at Not on file Legal Sex Female 10:08 AM CDT Gender Identity Not on file Sexual Orientation Not on file Obstetrics History Last Filed Vital Signs Vital Sign Reading Time Taken Comments Blood Pressure 137/89 07/16/2022 1:50 PM CDT Pulse 88 07/16/2022 1:50 PM CDT Temperature 36.1 C (96.9 F) 07/16/2022 11:20 AM CDT Respiratory Rate 18 08/03/2022 4:26 PM CDT Oxygen Saturation 95% 07/16/2022 1:50 PM CDT Inhaled Oxygen Concentration - - Weight 110.2 kg (243 lb) 08/03/2022 4:26 PM CDT Height 165.1 cm (5' 5 ) 08/03/2022 4:26 PM CDT Body Mass Index 40.44 08/03/2022 4:26 PM CDT Plan of Treatment Health Maintenance Due Date Last Done Comments Cervical Cancer Screening 1998 Depression Screening 1998 Hepatitis C Screening 1998 HPV Vaccines (1 - 3-dose series) 2013 Regular Well Visit/Exam 18-64 2016 DTaP/Tdap/Td Vaccine (6 - Td or Tdap) 11/28/2022 11/28/2012, 12/12/2003, 05/09/2003, Additional history exists Covid-19 Vaccine ( - 2023-2 5 season) 2023 08/17/2020, 07/20/2020 Influenza Vaccine (Season Ended) 2024 12/26/19 19 Hepatitis B Screening Completed 04/09/2002 , 12/18/2001, 1998 Pneumococcal vaccine <65 Completed 05/09/2003 Varicella Vaccines Completed 08/21/2009, 12/18/2001 Insurance [facility] OPEN ACCESS [employer] OPEN ACCESS Advance Directives For more information, please contact: [phone] * Full Code (Latest Code Status on File) Date Activated Date Inactivated Comments 07/16/2022 11:46 AM 07/16/2022 6:22 PM Care Teams Scrap Preparer Relationship Specialty Start Date End Date Shelia Corona NP [address] [place] [address] [place] [address] PCP - General Nurse Practitioner 05/27/22 Gian Greco MD [address] [place] [address] Consulting Physician Otolaryngology 07/16/22
--- OUTSIDE RECORDS SUMMARY | 2024-07-23 16:35 | XMS_ITS | Clinical Summary ---
Author Organization [facility] babberly MACHIAS Address [address] [place] [address] Care Team Providers Care Waistband Setter Name Role Phone Bebe Joyce MD Primary Care Provider [phone] Allergies Active Allergy Reactions Criticality Noted Date Comments Empagliflozin Other (See Comments) Medium 05/07/2024 Hypoglycemia on 10 mg Metformin Diarrhea Low 02/03/2023 Tirzepatide Other (See Comments) 10/25/2023 Hypoglycemia-- at 2.5 mg dose. 07/2022 Medications CYANOCOBALAMIN, VITAMIN B-12, ORAL Take by mouth. Activ e IRON ORAL Take by mouth. Activ e famotidine 20 mg tablet Take 20 mg by mouth daily. Active acetaminophen (TYLENOL) 500 mg tablet TAKE 2 TABLETS BY MOUTH THREE TIMES A DAY NEEDED FOR PAIN FOR 7 DAYS 3 Active hydrOXYzine pamoate (VISTARIL) 25 mg capsuleIndicatio ns:Insomnia, unspecified type Take 1 Capsule (25 mg) by mouth nightly as needed for Insomnia. 30 Capsule 3 Active Blood-Glucose Meter Kit 1 Each daily. 1 Kit 1 4 Active cetirizine (ZyrTEC) 10 mg tablet Take 1 Tablet (10 mg) by mouth daily. 90 Tablet 4 Active fluticasone propionate (FLONASE) 50 mcg/spray Worden, Suspension nasal inhalerIndicatio ns:Eustachian tube dysfunction, bilateral Administer 2 Sprays in each nostril daily. 16 Gram 4 Active flash glucose scanning reader (FreeStyle Isatu 2 [place]) MiscIndications: Type 2 diabetes mellitus with hyperglycemia, without long-term current use of insulin (CMS/[facility]) 1 Each by [facility]Non-Drug; Combo Route) route every 2 weeks. Use to monitor glucose continuously. 2 Each 2 4 Active atorvastatin (Lipitor) 80 mg tabletIndication s:Severe obesity (BMI 35.0-39.9) with comorbidity (CMS/HCC) Take 1 Tablet (80 mg) by mouth daily at bedtime. 90 Tablet 4 Active benzonatate (TESSALON) 200 mg capsule take 1 capsule by mouth 3 times daily as needed for cough 5 Active ergocalciferol (VITAMIN D2) 50,000 unit capsuleIndicatio ns:Vitamin D deficiency Take 1 Capsule (50,000 Units) by mouth every 7 days. 12 Capsule 5 Active ondansetron (Zofran) 4 mg TabletIndication s:Type 2 diabetes mellitus with hyperglycemia, without long-term current use of insulin (CMS/HCC) Take 1 Tablet (4 mg) by mouth every 8 hours as needed for Nausea/Emesis. 10 Tablet 5 Active fenofibrate (LOFIBRA) 160 mg TabletIndication s:Mixed hyperlipidemia,H ypertriglyceride conrad Take 1 Tablet (160 mg) by mouth daily. 90 Tablet 5 Active glimepiride (AMARYL) 2 mg tablet Take 1 Tablet (2 mg) by mouth daily with breakfast. DIABETES 90 Tablet 5 Active citalopram (CeleXA) 20 mg tablet Take 1.5 Tablets (30 mg) by mouth daily in the morning. 90 Tablet 5 Active Active Problems Problem Noted Date Diagnosed Date Abnormal cardiovascular stress test 12/12/2023 Overview (12/12/2023): Normal EKG and echo but reported CP. Referred to cardiology. Dyspnea 10/25/2023 Insomnia 02/03/2023 Severe obesity (BMI 35.0-39.9) with comorbidity 02/03/2023 Overview (02/03/2023): DM, hyperlipidemia Type 2 diabetes mellitus wit h hyperglycemia, without long-term current use of insulin 12/09/2022 Callus of foot 12/09/2022 Moderate episode of recurrent major depressive d isorder 12/09/2022 Vitamin D deficiency 12/09/2022 Hyperlipidemia LDL goal <70 05/25/2022 Encounters Date Type Department Care Team Description 07/10/2024 External Device Data STL ABSTRACTION Provider, Abstract 06/18/2024 Orders Only [facility] [address] [place] [address] Melida Balderas, VELASQUEZ 06/12/2024 External Device Data STL ABSTRACTION Provider, Abstract 06/12/2024 External Device Data STL ABSTRACTION Provider, Abstract 06/02/2024 Refill [facility] [address] [place] [address] Melida Balderas, VELASQUEZ 05/28/2024 2:40 PM CDT Procedure visit [facility] [address] [place] [phone] Issue of repeat prescription for medication (Primary Dx) 05/28/2024 Refill [facility] [address] [place] [phone] Melida Balderas ANP Mixed hyperlipidemia; Hypertriglyceridemia 05/25/2024 Refill [facility] [address] [place] [phone] Melida Balderas, VELASQUEZ Type 2 diabetes mellitus with hyperglycemia, without long-term current use of insulin ([facility]) 05/21/2024 Orders Only [facility] [address] [place] [phone] Melida Baldreas ANP 05/17/2024 Orders Only [facility] [address] [place] [phone] Melida Balderas ANP 05/08/2024 Refill [facility] [address] [place] [address] Melida Balderas, ANP Severe obesity (BMI 35.0-39.9) with comorbidity (CMS/HCC) 05/07/2024 Orders Only [facility] [place] [address] [place] [address] Melida Balderas, VELASQUEZ 05/03/2024 1:30 PM STAMP ANALYST Office Visit [place] [address] [place] [address] Gely Villa DNP Type 2 diabetes mellitus with hyperglycemia, without long-term current use of insulin (CMS/HCC) (Primary Dx); Hypertriglyceridemia ; Mixed hyperlipidemia; Morbid obesity with body mass index (BMI) of 40.0 or higher (CMS/HCC); Vitamin D deficiency 05/03/2024 Results Follow-Up [place] [address] [place] [address] Gely Villa DNP HEMOGLOBIN A1C, VITAMIN D 25 HYDROXY, TSH, Additional followed-up results: 3 04/30/2024 7:20 AM STAMP ANALYST Clinical Support [place] [address] [place] [address] Screening for condition (Primary Dx) 04/25/2024 External Device Data STL ABSTRACTION Provider, Abstract from Last 3 Months Immunizations Immunization Administration Dates Next Due (ADACEL/BOOSTRIX)(10 YR UP) TDAP VACCINE, 0.5ML, IM 04/12/2023 INFLUENZA VACCINE TRIVALENT SPLIT VIRUS, (6 MOS UP), 0.5ML (PF), IM 01/30/2024 Family History Medical History Relation Name Comments No Known Problems Brother 1 No Known Problems Brother 2 No Known Problems Brother 3 No Known Problems Brother 4 No Known Problems Father Cancer Mother Karolina Leukemia Mother Karolina Hypertension Paternal Grandfather Daniel bringer Hypertension Paternal Grandmother Radha Bringer No Known Problems Sister 1 No Known Problems Sister 2 Relation Name Status Comments Brother 1 Alive Brother 2 Alive Brother 3 Alive Brother 4 Alive Father Alive Maternal Grandfather Alive Maternal Grandmother Alive Mother Karolina Alive Paternal Grandfather Daniel bringer Alive Paternal Grandmother Radha Bringer Alive Sister 1 Alive Sister 2 Alive Social History Tobacco Use Types Packs/Day Years Used Date Smoking Tobacco: Former Cigarettes 0.3 5 0 11/04/2016 - 11/04/2021 Smokeless Tobacco: Never Tobacco Cessation:Counseling Given: Not Answered Alcohol Use Standard Drinks/Week Comments Yes 0 (1 standard drink = 0.6 oz pur e alcohol) socially Comments No Sex and Gender Information Value Date Recorded Sex Assigned at Not on file Legal Sex Female 3:00 PM CDT Gender Identity Not on file Sexual Orientation Not on file Last Filed Vital Signs Vital Sign Reading Time Taken Comments Blood Pressure 126/78 05/03/2024 1:12 PM STAMP ANALYST Pulse 88 05/03/2024 1:12 PM STAMP ANALYST Temperature 36.9 C (98.4 F) 05/03/2024 1:12 PM STAMP ANALYST Respiratory Rate 18 05/03/2024 1:12 PM STAMP ANALYST Oxygen Saturation 99% 05/03/2024 1:12 PM STAMP ANALYST Inhaled Oxygen Concentration - - Weight 107.5 kg (237 lb) 05/03/2024 1:12 PM STAMP ANALYST Height 165.1 cm (5' 5 ) 05/03/2024 1:12 PM STAMP ANALYST Body Mass Index 39.44 05/03/2024 1:12 PM STAMP ANALYST Plan of Treatment Health Maintenance Due Date Last Done Comments HPV VACCINES (1 - 3-dose series) 2013 DIABETES ANNUAL RETINAL EXAM 2016 HEPATITIS B VACCINES (1 of 3 - 19+ 3-dose series) 2017 CERVICAL CANCER SCREENING 06/14/2019 HPV/Cotest (21-29) 06/14/2019 PAP SMEAR 06/14/2019 Preventative Visit- Commercial 03/07/2024 DIABETES ANNUAL FOOT EXAM 04/12/20242023, 04/12/2023, 12/09/2022, Additional history exists DIABETES MICROALBUMIN ANNUAL SCREEN 10/19/2024 10/20/2023, 01/06/2023, 07/13/2022, Additional history exists DIABETES HBA1C Q 6 MONTHS 10/28/20242024, 01/19/2024, 10/20/2023, Additional history exists LDL CHOLESTEROL ANNUAL 04/30/2025 5, 01/19/2024, 10/20/2023, Additional history exists DTAP/TDAP/TD VACCINES (2 - T d or Tdap) 04/12/2033 04/12/2023 INFLUENZA VACCINE Completed 01/30/2024, 01/08/2022 Procedures Procedure Name Priority Date/Time Associated Diagnosis Comments CBC WITH DIFFERENTIAL Routine 04/30/2024 7:32 AM STAMP ANALYST Screening for condition COMPREHENSIVE METABOLIC PANEL Routine 04/30/2024 7:32 AM STAMP ANALYST Screening for condition LIPID PANEL Routine 04/30/2024 7:32 AM STAMP ANALYST Screening for condition TSH Routine 04/30/2024 7:32 AM STAMP ANALYST Screening for condition VITAMIN D 25 HYDROXY Routine 04/30/2024 7:32 AM STAMP ANALYST Screening for condition HEMOGLOBIN A1C Routine 04/30/2024 7:32 AM STAMP ANALYST Screening for condition MICROALBUMIN/CREATININ E RATIO, RANDOM UR Routine 10/20/2023 7:39 AM CDT Type 2 diabetes mellitus with hyperglycemia, without long-term current use of insulin ([facility]) from Last 3 Months or Most Recently Relevant to Health Maintenance Results * (ABNORMAL) CBC WITH DIFFERENTIAL (04/30/2024 7:32 AM STAMP ANALYST) WBC 9.4 3.8 - 10.8 Thousand/u L [facility] RBC 4.82 3.80 - 5.10 Million/uL [facility] HEMOGLOBIN 13.4 11.7 - 15.5 g/dL [facility] HEMATOCRIT 40.7 35.0 - 45.0 % [facility] MCV 84.4 80.0 - 100.0 fL [facility] MCH 27.8 27.0 - 33.0 pg [facility] MCHC 32.9 32.0 - 36.0 g/dL [facility] Comment: For adults, a slight decrease in the calculated MCHC value (in the range of 30 to 32 g/dL) is most likely not clinically significant; however, it should be interpreted with caution in correlation with other red cell parameters and the patient's clinical condition. RDW 12.8 11.0 - 15.0 % [facility] PLATELETS 197 140 - 400 Thousand/u L [facility] MPV 12.8(H) 7.5 - 12.5 fL [facility] NEUTROPHIL ABSOLUTE 5,508 1,500 - 7,800 cells/uL [facility] LYMPHOCYTE ABSOLUTE 3,036 850 - 3,900 cells/uL [facility] MONOCYTE ABSOLUTE 639 200 - 950 cells/uL [facility] EOSINOPHIL ABSOLUTE 188 15 - 500 cells/uL [facility] BASOPHILS ABSOLUTE 28 0 - 200 cells/uL [facility] NEUTROPHIL 58.6 % [facility] LYMPHOCYTES 32.3 % [facility] MONOCYTE 6.8 % [facility] EOSINOPHILS 2.0 % [facility] BASOPHILS 0.3 % [facility] Comment: Test Performed at: [facility] [address] [place] [address] Jorge L Jones MD Blood 04/30/2024 7:32 AM STAMP ANALYST 05/01/2024 7:04 AM STAMP ANALYST Melida Balderas [facility] HEMATOLOGY ORDERABLES Final Result [facility] [phone] [facility] [address] [facility] [place] [address] * (ABNORMAL) VITAMIN D 25 HYDROXY (04/30/2024 7:32 AM STAMP ANALYST) VITAMIN D, 25 OH, TOTAL 12(L) 30 - 100 ng/mL [facility] Comment: Vitamin D Status 25-OH Vitamin D: Deficiency: <20 ng/mL Insufficiency: 20 - 29 ng/mL Optimal: > or = 30 ng/mL For 25-OH Vitamin D testing on patients on D2-supplementation and patients for whom quantitation of D2 and D3 fractions is required, the [facility]) 25-OH VIT D, (D2,D3), LC/MS/MS is recommended: order code 51485 (patients >2yrs). See Note 1 Note 1 For additional information, please refer to http://education.Shipping Easy/faq/QCW263 (This link is being provided for informational/ educational purposes only.) Test Performed at: [facility] [place] [address] Jorge L Jones MD Blood 04/30/2024 7:32 AM STAMP ANALYST 05/01/2024 7:04 AM STAMP ANALYST Melida Balderas ANP CHEMISTRY ORDERABLES Final R esult Performing Organization Address City/[facility]/ZIP Co de Phone Number [facility] [phone] [facility] [address] [place], [place] [address] [address] * TSH (04/30/2024 7:32 AM STAMP ANALYST) TSH 4.44 mIU/L [facility] Comment: Reference Range > or = 20 Years 0.40-4.50 Ranges First trimester 0.26-2.66 Second trimester 0.55-2.73 Third trimester 0.43-2.91 Test Performed at: [facility] [place] [address] Jorge L Jones MD Blood 04/30/2024 7:32 AM STAMP ANALYST 05/01/2024 7:04 AM STAMP ANALYST Melida Balderas ANP CHEMISTRY ORDERABLES Final R esult [facility] [phone] [facility] [place] [place] [address] * (ABNORMAL) HEMOGLOBIN A1C (04/30/2024 7:32 AM STAMP ANALYST) Pathologist [facility] HEMOGLOBIN A1C 10.8(H) <5.7 % of total Hgb [facility] Comment: For someone without known diabetes, a hemoglobin A1c value of 6.5% or greater indicates that they may have diabetes and this should be confirmed with a follow-up test. For someone with known diabetes, a value <7% indicates that their diabetes is well controlled and a value greater than or equal to 7% indicates suboptimal control. A1c targets should be individualized based on duration of diabetes, age, comorbid conditions, and other considerations. Currently, no consensus exists regarding use of hemoglobin A1c for diagnosis of diabetes for children. ESTIMATED AVERAGE GLUCOSE (MG/DL) 263 mg/dL [facility] ESTIMATED AVERAGE GLUCOSE (MMOL/L) 14.6 mmol/L [facility] Comment: Test Performed at: [facility] [address] [facility] [place] [address] Jorge L Jones MD Blood 04/30/2024 7:32 AM STAMP ANALYST 05/01/2024 7:04 AM STAMP ANALYST us Melida Balderas [facility] CHEMISTRY ORDERABLES Final R esult [facility] [phone] [facility] [address] [place] [address] * (ABNORMAL) LIPID PANEL (04/30/2024 7:32 AM STAMP ANALYST) Pathologist [facility] CHOLESTEROL 268(H) <200 mg/dL [facility] [place] HDL 34(L) > OR = 50 mg/dL [facility] [place] TRIGLYCERIDE 684(H) <150 mg/dL [facility] [place] Comment: If a non-fasting specimen was collected, consider repeat triglyceride testing on a fasting specimen if clinically indicated. Marissa et al. J. of Clin. Lipidol. 2015;9:129-169. There is increased risk of pancreatitis when the triglyceride concentration is very high (> or = 500 mg/dL, especially if > or = 1000 mg/dL). Marissa et al. J. of Clin. Lipidol. 2015;9:129-169. LDL CALCULATED mg/dL (calc) [facility] [place] Comment: LDL cholesterol not calculated. Triglyceride levels greater than 400 mg/dL invalidate calculated LDL results. Reference range: <100 Desirable range <100 mg/dL for primary prevention; <70 mg/dL for patients with CHD or diabetic patients with > or = 2 CHD risk factors. LDL-C is now calculated using the Shade-Benton calculation, which is a validated novel method providing better accuracy than the Friedewald equation in the estimation of LDL-C. Shade SS et al. NATALIE. 2013;310(19): 1865-9442 (http://education.Shipping Easy/faq/MVO248) CHOL/HDL RATIO 7.9(H) <5.0 (calc) [facility] [place] NON-HDL CHOLESTEROL 234(H) <130 mg/dL (calc) [facility] [place] Comment: Non-HDL level > or = 220 is very high and may indicate genetic familial hypercholesterolemia (FH). Clinical assessment and measurement of blood lipid levels should be considered for all first-degree relatives of patients with an FH diagnosis. For patients with diabetes plus 1 major ASCVD risk factor, treating to a non-HDL-C goal of <100 mg/dL (LDL-C of <70 mg/dL) is considered a therapeutic option. Test Performed at: [facility] [address] [place] [address] Jorge L Jones MD Blood 04/30/2024 7:32 AM STAMP ANALYST 05/01/2024 7:04 AM STAMP ANALYST Melida Balderas [facility] CHEMISTRY ORDERABLES Final R esult [facility] [phone] [facility] [address] [place] [address] * (ABNORMAL) COMPREHENSIVE METABOLIC PANEL (04/30/2024 7:32 AM STAMP ANALYST) GLUCOSE 269(H) 65 - 99 mg/dL [facility] Comment: Fasting reference interval For someone without known diabetes, a glucose value >125 mg/dL indicates that they may have diabetes and this should be confirmed with a follow-up test. BUN 17 7 - 25 mg/dL [facility] CREATININE 0.60 0.50 - 0.96 mg/dL [facility] GFR 128 > OR = 60 mL/min/1. 73m2 [facility] BUN/CREAT RATIO SEE NOTE: 6 - 22 (calc) [facility] Comment: Not Reported: BUN and Creatinine are within reference range. SODIUM 134(L) 135 - 146 mmol/L [facility] POTASSIUM 4.2 3.5 - 5.3 mmol/L [facility] CHLORIDE 102 98 - 110 mmol/L [facility] CO2 24 20 - 32 mmol/L [facility] CALCIUM 8.8 8.6 - 10.2 mg/dL [facility] TOTAL PROTEIN 7.1 6.1 - 8.1 g/dL [facility] ALBUMIN 4.1 3.6 - 5.1 g/dL [facility] GLOBULIN 3.0 1.9 - 3.7 g/dL (calc) [facility] ALBUMIN/GLOBULIN RATIO 1.4 1.0 - 2.5 (calc) [facility] BILIRUBIN TOTAL 0.3 0.2 - 1.2 mg/dL [facility] ALKALINE PHOSPHATASE 125 31 - 125 U/L [facility] AST 17 10 - 30 U/L [facility] ALT 36(H) 6 - 29 U/L [facility] Comment: Test Performed at: [facility] [address] [place] [address] Jorge L Jones MD Blood 04/30/2024 7:32 AM STAMP ANALYST 05/01/2024 7:04 AM STAMP ANALYST us Melida Balderas ANP CHEMISTRY ORDERABLES Final R esult [facility] [phone] [facility] [address] [facility] [place] [address] * MICROALBUMIN/CREATININE RATIO, RANDOM UR (10/20/2023 7:39 AM CDT) Creatinine, Urine 81 20 - 275 mg/dL [facility] MICROALBUMIN, URINE 0.5 See Note: mg/dL [facility] Comment: Reference Range: Reference Range Not established MICROALBUMIN/CREAT RATIO, UR 6 <30 mg/g creat [facility] Comment: The ADA defines abnormalities in albumin excretion as follows: Albuminuria Category Result (mg/g creatinine) Normal to Mildly increased <30 Moderately increased 30-299 Severely increased > OR = 300 The ADA recommends that at least two of three specimens collected within a 3-6 month period be abnormal before considering a patient to be within a diagnostic category. Test Performed at: [facility] [address] [place] [address] Jorge L Jones MD Urine URINE SPECIMEN OBTAINED BY CLEAN CATCH PROCEDURE / Unknown 10/20/2023 7:39 AM CDT 10/21/2023 5:19 AM CDT us Melida Balderas ANP URINE ORDERABLES Final Resul t [facility] [phone] [facility] [address] [place] [address] from Last 3 Months or Most Recently Relevant to Health Maintenance Insurance [employer] OPEN ACCESS [place] * Guarantor: ROSEANNA MALDONADO-[employer] A THRU D (C) Account Type Relation to Patient Date of Phone Billing Address Corporate Employer ATTN: MAZIN ZUÑIGA [address] [address] [facility] OPEN ACCESS Care Teams Waistband Setter Relationship Specialty Start Date End Date Bebe Joyce MD [address] [place] [phone] PCP - General Internal Medicine 07/19/23
--- OUTSIDE RECORDS SUMMARY | 2024-07-23 16:35 | XMS_ITS | Referral Summary ---
Author Organization [facility] Address [address] [place] [address] Care Team Providers Care Form Grader Name Role Phone Shelia Corona MEDICAL DETAIL REPRESENTATIVE Primary Care Provider Gian Greco MD Unavailable [phone] Allergies No known active allergies Medications Dexcom G6 Statistics Intern misc as directed 3 Active Dexcom G6 [...] Is being scheduled. She had no questions. Social History Tobacco Use Types Packs/Day Years [...] 08/03/2022 4:26 PM CDT Plan of Treatment Not on file Insurance [employer] OPEN ACCESS [employer] OPEN ACCESS Advance Directives For more information, please contact: [phone] * Full Code (Latest Code Status on File) Date Activated Date Inactivated Comments 07/16/2022 11:46 AM 07/16/2022 6:22 PM Care Teams Form Grader Relationship Specialty Start Date End Date Shelia Corona NP [address] [address] [place] [address] PCP - General Nurse Practitioner 05/27/22 Gian Greco MD [address] [place] [address] Consulting Physician Otolaryngology 07/16/22
--- OUTSIDE RECORDS SUMMARY | 2024-07-23 16:35 | XMS_ITS | Continuity of Care Document ---
Author Organization [facility] Address [address] [facility] [address] [place] [address] Insurance Providers Payer Plan Claims Address Claims Phone Policy Number Group Number Relation Employer Guarantor Name Guarantor Guarantor Address [place] [id number] Other Jani Morales Dandre [address] [place] [id number] [place] [id number] Self Galina Everett Hiraer [address] [place] [id number] CIGNA [id number] Cigna [id number] Other Karolina Moreira Hira [address] [place] [id number] Problems Condition ICD9 code ICD10 code SNOMED code Start Date End Date S tatus Encounter for screening for other metabolic disorders Z13.228 Results No Results Allergies, adverse reactions, alerts No known allergies and adverse reactions Medications No administered medications reported Vital Signs No vital signs reported Social History No smoking Hx information available
[2024-07-23 16:36] VITALS: BP 152/89; PULSE 102; RESP 16; TEMP 36.9; O2SAT 99
--- NOTE | 2024-07-23 16:41 | ED.EXTPRO ---
HPI - Extremity Problem General Chief complaint: Skin/Abscess/Foreign Body Stated complaint: Redness/pain left calf/heel x 1 week Time Seen by Provider: 07/23/24 16:41 Focused HPI: This is a 24 year old female that presents to the ER for an area of redness to the left lower leg. Ongoing over the last week. Unsure of any certain injury. She does report she has a kitten and is unsure if she was bitten or scratched. Denies fevers. GENERAL: Well-appearing, well-nourished, and in no acute distress. HEAD: Normocephalic, atraumatic. CHEST: Clear to auscultation. No respiratory distress. HEART: Regular rate and rhythm. NEURO: Alert and oriented x3. Patient screened in triage and initial orders placed. Additional care and disposition to be based upon diagnostic testing and treatment. Related Data Home Medications Medication Instructions Recorded Confirmed Last Taken Type empagliflozin 10 mg tablet 10 mg PO DAILY 10/06/23 10/06/23 Unknown History (Jardiance) semaglutide (weight loss) 2.4 mg subcut 12/26/23 Unknown History mg/0.75 mL subcutaneous pen injector (Wegovy) citalopram 20 mg tablet (Celexa) 10 mg PO DAILY 03/14/24 03/14/24 Unknown History Allergies Allergy/AdvReac Type Severity Reaction Status Date / Time No Known Allergies Allergy Mild Verified 07/23/24 16:33 Review of Systems Review of Systems: All systems reviewed & are unremarkable except as noted in HPI and below PMFSH Past Medical History Medical History (Updated 07/23/24 @ 16:44 by Cathy Michelle PA-C) Diabetes Anxiety Depression Surgical History Surgical History History of tonsillectomy Hx of appendectomy Family History Family History Mother Leukemia Other Diabetes mellitus Other Diabetes mellitus Social History Social History Smoking packs per day: 0 Smoking cigarettes per day: 0.0 Years smoked: 2 Smoking pack-years: 0.00 Smoking status: Light tobacco smoker Tobacco type: cigarettes Second hand tobacco smoke exposure: Yes Alcohol intake: never Occupation/Education: other Gender identity (if verbalized by the patient): Female Exam Narrative: GENERAL: Well-appearing, well-nourished, and in no acute distress. HEAD: Normocephalic, atraumatic. EYES: EOMI. EXTREMITIES: Normal range of motion. No edema. Small area of redness with central punctum to the left lower leg posteriorly SKIN: Warm, dry, no rash. NEURO: No focal deficits. Alert and oriented x3. PSYCH: Normal mood and affect Course Vital Signs Vital signs: Vital Signs Temperature 98.4 F 07/23/24 16:36 Pulse Rate 102 H 07/23/24 16:36 Respiratory Rate 16 07/23/24 16:36 Blood Pressure 152/89 H 07/23/24 16:36 Pulse Oximetry 99 07/23/24 16:36 Temperature 98.4 F 07/23/24 16:36 Pulse Rate 102 H 07/23/24 16:36 Respiratory Rate 16 07/23/24 16:36 Blood Pressure 152/89 H 07/23/24 16:36 Pulse Oximetry 99 07/23/24 16:36 MDM - Extremity (Nontraumatic) MDM Narrative Medical decision making narrative: Patient with a small bite/scratch area to the left lower leg with mild surrounding cellulitis. Will be started on oral and topical antibiotics Differential Diagnosis Differential diagnosis: Likely cellulitis and other (cat bite/scratch) Critical Care Time Critical Care Time Critical Care Time: No Discharge Plan Discharge Clinical Impression: Cellulitis Qualifiers: Site of cellulitis: extremity Site of cellulitis of extremity: lower extremity Laterality: left Qualified Code(s): L03.116 - Cellulitis of left lower limb Patient Disposition: Home Condition: Stable Instructions: Antibiotic Form, Cellulitis (ED) Additional Instructions: Return if symptoms worsen or concerns: any increase in redness, swelling, pain or fever over 101 Take antibiotics as directed. Clean wound with mild soapy water. Apply antibiotic ointment and clean dressing at least twice daily. Follow up with primary care Patient Language: Tanzanian Prescriptions: New mupirocin [Centany] 2 % ointment 1 applic topical BID 7 Days Qty: 15 0RF amoxicillin-pot clavulanate 875-125 mg tablet 1 tablet PO Q12H 7 Days Qty: 14 0RF No Action citalopram [Celexa] 20 mg tablet 10 mg PO DAILY benzonatate 200 mg capsule 200 mg PO TID PRN (Reason: cough) Qty: 20 0RF methylprednisolone [Medrol (Alen)] 4 mg tablets,dose pack See Rx Instructions PO .COMPLEX Qty: 21 0RF Rx Instructions: orally per package directions fluticasone propionate [Flonase Allergy Relief] 50 mcg/actuation spray,suspension 1 spray intranasal BID Qty: 16 0RF Rx Instructions: administer into each nostril guaifenesin [Mucinex] 600 mg tablet extended release 12hr 600 mg PO BID 10 Days Qty: 20 0RF Jardiance 10 mg tablet 10 mg PO DAILY Wegovy 2.4 mg/0.75 mL pen injector SUBCUT Follow-up/Referrals: Andrey,Melida Young APRN [Non-Staff] - Renny Wynne MD [Physician] -
== END 2024-07-23 19:06 | disposition home or self-care (01) ==
LOC: ANHED 16:51
PROVIDERS: Emergency Provider Physician Assistant
DX: L03.116 Cellulitis of left lower limb (principal); E11.9 Type 2 diabetes mellitus without complications; F32.A Depression, unspecified; F41.9 Anxiety disorder, unspecified; Z87.891 Personal history of nicotine dependence; Z79.899 Other long term (current) drug therapy; Z79.84 Long term (current) use of oral hypoglycemic drugs; Z79.85 Long-term (current) use of injectable non-insulin antidiabetic drugs
CPT/HCPCS: 99283

== ENCOUNTER 2025-02-20 09:34 | Emergency (ER) | payer SELFPAY ==
--- NOTE | 2025-02-20 09:38 | ED_ITS ---
HPI - Ear Problem General Chief complaint: Ear Stated complaint: left ear pain Time Seen by Provider: 02/20/25 09:36 Source: patient Mode of arrival: ambulatory Limitations: no limitations History of Present Illness HPI Narrative: patient is a 24-year-old female who presents with left ear pain for 5 days. Patient has been taking Tylenol and ibuprofen. Denies any fever, chills, nausea, vomiting, diarrhea, congestion, sore throat, cough. MD Complaint: ear pain Related Data Allergies Allergy/AdvReac Type Severity Reaction Status Date / Time No Known Allergies Allergy Mild Verified 02/20/25 10:10 Review of Systems Review of Systems: All systems reviewed & are unremarkable except as noted in HPI and below Constitutional: Constitutional: Denies body ache(s), Denies chills, Denies fever(s), Denies headache(s) and Denies malaise Eyes: Eyes: Denies blurry vision, Denies eye discharge and Denies irritation ENT: Reports otalgia, Denies headache(s), Denies nasal congestion, Denies nasal discharge and Denies sore throat Cardiovascular: Cardiovascular: Denies chest pain, Denies edema, Denies palpitations and Denies dyspnea on exertion Respiratory: Respiratory: Denies cough and Denies dyspnea on exertion Gastrointestinal: Gastrointestinal: Denies abdominal pain, Denies diarrhea, Denies nausea and Denies vomiting Musculoskeletal: Musculoskeletal: Denies back pain, Denies arthralgias and Denies muscle weakness Integumentary/Breasts: Skin/Breast: Denies pruritus and Denies rash Neurologic: Denies headache(s) Psychiatric: Psychiatric: Reports no additional psychiatric complaints Endocrine: Endocrine: Denies palpitations PMFSH Past Medical History Medical History Diabetes Anxiety Depression Surgical History Surgical History History of tonsillectomy Hx of appendectomy Family History Family History Mother Leukemia Other Diabetes mellitus Other Diabetes mellitus Social History Social History Smoking packs per day: 0 Smoking cigarettes per day: 0.0 Years smoked: 2 Smoking pack-years: 0.00 Smoking status: Light tobacco smoker Tobacco type: cigarettes Second hand tobacco smoke exposure: Yes Alcohol intake: never Occupation/Education: other Gender identity (if verbalized by the patient): Female Comments At time of signature, agree with nursing past medical, surgical, social and family history. There is no relevant family history pertinent to the presenting complaint? Exam Const: General: cooperative, healthy appearing, no acute distress and well nourished Nutritional Appearance: well nourished Orientation/consciousness: patient oriented x3 Limitations: no limitations HENMT: Head: normal to inspection, normocephalic and atraumatic Ears: hearing grossly normal bilaterally, EAC's normal, no periauricular adenopathy and TM abnormal bulging on the left and erythematous on the left Face/Nose/Sinus: Normal external nose present, Normal nares present, Normal nasal mucous membranes and turbinates present, No nasal discharge present, normal facial exam and sinuses nontender Face and sinus: normal facial exam and sinuses nontender Mouth: Yes Normal oral and palatal mucosa present, Yes lip normal, Yes tongue normal and Yes moist mucous membranes Throat: posterior oropharynx normal, tonsils normal and uvula midline Eyes: General: appearance normal, both eyes and all related structures Alignment and Position: alignment normal and position normal Eyelids: eyelids normal Pupils: Equal, round and reactive pupils present EOM: EOMs intact bilaterally Neck: Neck: normal visual inspection, full ROM, no lymphadenopathy and supple Chest: Chest palpation & inspection: normal inspection of the chest Resp: Effort & Inspection: normal respiratory effort and able to speak in complete sentences Auscultation: clear to auscultation bilaterally, no crackles, no rales, no rhonchi and no wheezes Cardio: Rate: regular rate Rhythm: regular rhythm Heart sounds: S1 normal heart sound present and S2 normal heart sound present Skin: General skin exam: normal color and no rashes or lesions noted Neuro: General: patient oriented x3 and moves all extremities Cranial nerves: Yes Equal, round and reactive pupils present Cognition (Neuro): normal cognition Speech: normal speech Gait exam (Neuro): Normal gait present Extrem: General: normal to inspection and full ROM Psych: Appearance: grossly normal and well kempt Mental Status: mental status grossly normal Speech and movement: Normal speech and movement present Course Course Emergency Course: Patient is aware of diagnosis, understands and agrees to treatment plan. Anticipatory guidance given. Patient agrees to follow-up as directed and is aware of reasons to seek care at the emergency department. Portions of this record may have been created with voice recognition software Level of Care: Express Care Visit Vital Signs Vital signs: Vital Signs Temperature 36.5 C 02/20/25 10:11 Pulse Rate 84 02/20/25 10:11 Respiratory Rate 18 02/20/25 10:11 Blood Pressure 143/92 H 02/20/25 10:11 Pulse Oximetry 99 02/20/25 10:11 Oxygen Delivery Room Air 02/20/25 10:11 Temperature 36.5 C 02/20/25 10:11 Pulse Rate 84 02/20/25 10:11 Respiratory Rate 18 02/20/25 10:11 Blood Pressure 143/92 H 02/20/25 10:11 Pulse Oximetry 99 02/20/25 10:11 Oxygen Delivery Room Air 02/20/25 10:11 MDM MDM Narrative Medical decision making narrative: Pt well hydrated appearing, in no respiratory distress, hemodynamically stable. Recommend supportive care. The patient is stable at time of discharge the clinical impression was discussed and the patient was given the opportunity to ask questions, which were addressed as completely as possible given the information available at present. Anticipatory guidance and return to care precautions were discussed and the importance of primary care follow-up was stressed and encouraged. The patient voiced understanding of the plan, indications to return, and the need for follow-up. Exam findings show no acute concerns or changes Patient is appropriate for outpatient treatment and follow-up. Differential Diagnosis Differential Diagnosis: Differential diagnosis considered: otitis media, otitis externa, otitis effusion, foreign body, cerumen impaction, viral syndrome? Medical Records I have reviewed the following patient records and this information was taken into consideration when formulating the assessment and plan.: previous clinic visits Discharge Plan Discharge Clinical Impression: Otitis media Qualifiers: Otitis media type: suppurative Chronicity: acute Laterality: left Recurrence: non-recurrent Spontaneous tympanic membrane rupture: without spontaneous rupture Qualified Code(s): H66.002 - Acute suppurative otitis media without spontaneous rupture of ear drum, left ear Patient Disposition: Home Condition: Stable Instructions: Ear Infection (GEN) Additional Instructions: Take antibiotics as directed. Recommend antihistamine such as Benadryl at night time and Zyrtec or Brandee during the day until symptoms improve Flonase nasal spray, 1 spray in each nostril once daily until symptoms improve Also, recommend symptomatic treatment includes: rest, fluids, and increase humidity of the air at home. Recommend Acetaminophen as directed on the bottle to reduce fever, pain Please schedule a follow-up visit with your personal physician for further evaluation and treatment within 3-5days. If your symptoms persist, change or worsen significantly before you can contact your personal physician then please, without delay, go to the emergency department for further evaluation. Patient Language: Greenlandic Prescriptions: New amoxicillin 875 mg tablet 875 mg PO Q12H 7 Days Qty: 14 0RF fluticasone propionate [Flonase Allergy Relief] 50 mcg/actuation spray,suspension 1 spray intranasal DAILY Qty: 16 0RF Rx Instructions: administer into each nostril loratadine 10 mg tablet 10 mg PO DAILY Qty: 30 0RF Follow-up/Referrals: Renny Wynne MD [Physician, Family Practice] - 3 Days Referral Note: Establish care Stand Alone Forms: Work/School Release IP Time of Disposition: 10:12
[2025-02-20 10:11] VITALS: BP 143/92; PULSE 84; RESP 18; TEMP 36.5; O2SAT 99
== END 2025-02-20 10:18 | disposition home or self-care (01) ==
PROVIDERS: Emergency Provider Nurse Practitioner Family
DX: H66.002 Acute suppurative otitis media without spontaneous rupture of ear drum, left ear (principal); F17.210 Nicotine dependence, cigarettes, uncomplicated; E11.9 Type 2 diabetes mellitus without complications
CPT/HCPCS: 99213; G0463